=== PATIENT | female | born 1975 | race African-American/Black ===

== ENCOUNTER 2017-02-09 18:06 | Emergency (ER) | payer OTHER ==
[~2017-02-09] VITALS: Ht 175.3 cm; Wt 149.7 kg
[~2017-02-09 18:06] MED LIST: ERGO400T PO; METF-620 PO; METO-239 PO
[2017-02-09 18:13] VITALS: BP 154/90
[2017-02-09] MEDS ORDERED: IBUPROFEN 800 MG TABLET. PO ONE (18:30)
--- NOTE | 2017-02-09 18:34 | PHYS DOC ---
Past Medical History Past Medical History: Diabetes-Type II, Hypertension Additional Past Medical Histor: borderline DM Past Surgical History: Other Additional Past Surgical Histo: right ankle; oral surgery Alcohol Use: None Drug Use: None Adult General Chief Complaint Chief Complaint: SHOULDER INJURY [facility] HPI Patient is a 41 year old female presents to the emergency department stating that she is having right shoulder pain and discomfort. She states that she hasn' t carried multiple turkey carcasses out to the trash can in a trash bag when she had to drop the back due to pain and discomfort. She denies any trauma or physical injury to the shoulder. She does have decreased range of motion or she is unable to raise the arm in the anterior part of her body. She is able to raise her arm out to the side approximately 30. Peripheral pulses are 2+ cap refill brisk less than 2 seconds patient has good sensation noted to bilateral arms. Review of Systems Review of Systems Constitutional: Denies fever or chills [] Eyes: Denies change in visual acuity, redness, or eye pain [] HENT: Denies nasal congestion or sore throat [] Respiratory: Denies cough or shortness of breath [] Cardiovascular: No additional information not addressed in HPI [] GI: Denies abdominal pain, nausea, vomiting, bloody stools or diarrhea [] : Denies dysuria or hematuria [] Musculoskeletal: Denies back pain. Right shoulder pain Integument: Denies rash or skin lesions [] Neurologic: Denies headache, focal weakness or sensory changes [] Endocrine: Denies polyuria or polydipsia [] All other systems were reviewed and found to be within normal limits, except as documented in this note. Current Medications Current Medications Current Medications Medications (Trade) Dose Ordered Sig/Мария Start Time Stop Time Status Last Admin Dose Admin Ibuprofen (Motrin) 800 mg 1X ONCE 02/09/17 18:30 02/09/17 18:31 DC Allergies Allergies Allergies Coded Allergies Type Severity Reaction Last Updated Verified morphine Allergy Intermediate drowsy 10/04/13 No Physical Exam Physical Exam Constitutional: Well developed, well nourished, no acute distress, non-toxic appearance. [] HENT: Normocephalic, atraumatic, bilateral external ears normal, oropharynx moist, no oral exudates, nose normal. [] Eyes: PERRLA, EOMI, conjunctiva normal, no discharge. [] Neck: Normal range of motion, no tenderness, supple, no stridor. [] Cardiovascular:Heart rate regular rhythm, no murmur [] Lungs & Thorax: Bilateral breath sounds clear to auscultation [] Skin: Warm, dry, no erythema, no rash. [] Extremities: Right anterior shoulder tenderness, no cyanosis, no clubbing, ROM intact, no edema. Peripheral pulses 2+ cap refill brisk less than 2 seconds. Patient with good sensation noted to the arms and hands. Patient is able to move the wrist and the elbow with no difficulty. She does have decreased range of motion with anterior position of the arm. She has a 30 graze in the arm when extending to the lateral part of the body. Neurologic: Alert and oriented X 3, normal motor function, normal sensory function, no focal deficits noted. [] Psychologic: Affect normal, judgement normal, mood normal. [] Current Patient Data Vital Signs Vital Signs Date Time Temp Pulse Resp B/P (MAP) Pulse Ox O2 Delivery O2 Flow Rate FiO2 02/09/17 18:13 97.8 77 16 97 Room Air 97.8 EKG EKG [] Radiology/Procedures Radiology/Procedures [] Course & Med Decision Making Course & Med Decision Making Pertinent Labs and Imaging studies reviewed. (See chart for details) Right shoulder x-ray was negative for any bony abnormalities per Dr. Sellers. Patient will be placed in a sling with recommendations to follow-up with Dr. Banegas. Recommended ibuprofen for pain and discomfort. Ice packs on 20 minutes off 20 minutes several times daily recommended that she take the arm out of the sling and do active range of motion at least 5-6 times a day. Patient was provided with signs and symptoms to return back to the emergency department. I've spoken with the patient and/or caregivers. I've explained the patient's condition, diagnosis and treatment plan based on information available to me at this time. I've answered the patient's and/or caregivers questions and addressed any concerns. The patient and/or caregivers have a good understanding the patient's diagnosis, condition and treatment plan as can be expected at this point. Vital signs have been stabilized. The patient's condition is stable for discharge from the emergency department. The patient will pursue further outpatient evaluation with her primary care provider or other designated consulting physician as outlined in the discharge instructions. Patient and/or caregivers are agreeable to this plan of care and follow-up instructions have been explained in detail. The patient and/or caregivers have received these instructions in written format and expressed understanding of these discharge instructions. The patient and her caregivers are aware that if any significant change in condition or worsening of symptoms should prompt him to immediately return to this of the closest emergency department. If an emergent department is not readily available I would encourage him to call 911. [] Dragon Disclaimer Dragon Disclaimer This electronic medical record was generated, in whole or in part, using a voice recognition dictation system. Departure Departure Impression: Primary Impression: Right shoulder pain Disposition: HOME, SELF-CARE Condition: STABLE Referrals: KACEY BANEGAS MD Patient Instructions: Arm Sling Use-Brief, Shoulder Pain, [id number] Additional Instructions: Activity as tolerated. Ice packs on 20 minutes off 20 minutes several times a day. Elevation as much as possible. Tylenol and ibuprofen for pain and discomfort. With a sling to help with comfort for the next 1-2 days. However take the arm out of the sling 5-6 times a day and do active range of motion. Follow-up with orthopedic within the next 3-5 days. Return back to the emergency department signs and symptoms become worse. Problem Qualifiers Primary Impression: Right shoulder pain Chronicity: unspecified Qualified Codes: M25.511 - Pain in right shoulder MARU MCKNIGHT APRN Feb 09, 2017 18:34
--- NOTE | 2017-02-10 07:55 | RAD ---
EXAM: Right shoulder 3 views. HISTORY: Right shoulder pain after injury. COMPARISON: None. FINDINGS: No fractures are identified. The glenohumeral joint spaces are not well profiled but alignment is maintained. Acromioclavicular joint spaces and alignment are maintained. IMPRESSION: 1. No fracture or malalignment.
== END 2017-02-09 19:13 | disposition home or self-care (01) ==
LOC: ER 18:06
DX: M25.511 Pain in right shoulder (principal); I10 Essential (primary) hypertension; E11.9 Type 2 diabetes mellitus without complications; Z88.5 Allergy status to narcotic agent
CPT/HCPCS: 73030; 99284

== ENCOUNTER 2020-07-31 20:24 | Inpatient (IN) | payer BC, OTHER ==
[~2020-07-31] VITALS: Ht 175.3 cm; Wt 147.2 kg
[~2020-07-31 20:24] MED LIST changes: -METF-620 PO; +METF10007 PO
--- NOTE | 2020-07-31 23:26 | PHYS DOC ---
Past Medical History Past Medical History: Diabetes-Type II, High Cholesterol, Hypertension Past Surgical History: Other Additional Past Surgical Histo: right ankle; oral surgery Smoking Status: Never Smoker Alcohol Use: None Drug Use: None General Adult EDM: Chief Complaint: CHEST PAIN HPI: HPI: Patient is a 44-year-old female presenting via POV for chest pain. Onset was 4 to 5 days ago without any known inciting event or trauma. Nothing makes better or worse. Pain is substernal, described as 5/10 pressure without radiation. Timing of symptoms has waxed and waned but reports after coming home from work this evening while walking around the house she started developing similar substernal chest pressure that did not go away after 1 hour which concerned her prompting her to come to our ER for evaluation. She has no personal cardiac history but extensive comorbid conditions such as obesity, high cholesterol, hypertension, type 2 diabetes. She has significant family history of cardiac disease with numerous first-degree relatives having heart attacks less than 50 years old. She does not smoke, no alcohol or illicit drug use. No fever, shortness of breath, cough, abdominal pain, dysuria. No concerning signs or symptoms indicative of potential blood clot/DVT/pulmonary embolus Review of Systems: Review of Systems: Fourteen body systems of review of systems have been reviewed. See HPI for pertinent positives and negative responses, other vaz all other systems are negative, non-pertinent or non-contributory Heart Score: C/O Chest Pain: Yes HEART Score for Chest Pain: HEART Score for Chest Pain Response (Comments) Value History Slighlty/Non-Suspicious 0 ECG Normal 0 Age < 45 0 Risk Factors >3 Risk Factors or Hx CAD 2 Troponin >3 x Normal Limit 2 Total 4 Risk Factors: Risk Factors: DM, Current or recent (<one month) smoker, HTN, HLP, family history of CAD, obesity. Risk Scores: Score 0 - 3: 2.5% MACE over next 6 weeks - Discharge Home Score 4 - 6: 20.3% MACE over next 6 weeks - Admit for Clinical Observation Score 7 - 10: 72.7% MACE over next 6 weeks - Early Invasive Strategies Allergies: Allergies: Allergies Coded Allergies Type Severity Reaction Last Updated Verified morphine Allergy Intermediate drowsy 10/04/13 No Physical Exam: PE: Constitutional: Well developed, well nourished, no acute distress, non-toxic appearance. Obese HENT: Normocephalic, atraumatic, bilateral external ears normal, oropharynx m oist, no oral exudates, nose normal. Eyes: PERRLA, EOMI, conjunctiva normal, no discharge. Neck: Normal range of motion, no tenderness, supple, no stridor. Cardiovascular: Heart rate regular, sinus rhythm, no murmurs rubs or gallops Lungs & Thorax: Bilateral breath sounds clear to auscultation Abdomen: Bowel sounds normal, soft and protuberant, no tenderness, no masses, no pulsatile masses. Nonsurgical abdomen, no peritoneal signs Skin: Warm, dry, no erythema, no rash. Back: No tenderness, no CVA tenderness. Extremities: No tenderness, no cyanosis, no clubbing, ROM intact, no edema. Neurologic: Alert and oriented X 3, grossly normal motor & sensory function, no focal deficits noted. Psychologic: Affect normal, judgement normal, mood normal. Current Patient Data: Labs: Laboratory Tests Test 07/31/20 23:23 07/31/20 23:45 Bedside Urine HCG, Qualitative Hcg negative White Blood Count 8.0 x10^3/uL Red Blood Count 4.30 x10^6/uL Hemoglobin 12.1 g/dL Hematocrit 36.2 % Mean Corpuscular Volume 84 fL Mean Corpuscular Hemoglobin 28 pg Mean Corpuscular Hemoglobin Concent 34 g/dL Red Cell Distribution Width 13.8 % Platelet Count 273 x10^3/uL Neutrophils (%) (Auto) 66 % Lymphocytes (%) (Auto) 24 % Monocytes (%) (Auto) 9 % Eosinophils (%) (Auto) 0 % Basophils (%) (Auto) 1 % Neutrophils # (Auto) 5.3 x10^3/uL Lymphocytes # (Auto) 1.9 x10^3/uL Monocytes # (Auto) 0.7 x10^3/uL Eosinophils # (Auto) 0.0 x10^3/uL Basophils # (Auto) 0.1 x10^3/uL Prothrombin Time 13.4 SEC Prothromb Time International Ratio 1.1 Activated Partial Thromboplast Time 40 SEC Sodium Level 144 mmol/L Potassium Level 4.0 mmol/L Chloride Level 107 mmol/L Carbon Dioxide Level 31 mmol/L Anion Gap 6 Blood Urea Nitrogen 13 mg/dL Creatinine 0.8 mg/dL Estimated GFR (Cockcroft-Gault) 94.3 BUN/Creatinine Ratio 16 Glucose Level 101 mg/dL Calcium Level 8.8 mg/dL Total Bilirubin 0.4 mg/dL Aspartate Amino Transf (AST/SGOT) 36 U/L Alanine Aminotransferase (ALT/SGPT) 23 U/L Alkaline Phosphatase 62 U/L Troponin I Quantitative 12.994 ng/mL Total Protein 7.5 g/dL Albumin 3.5 g/dL Albumin/Globulin Ratio 0.9 Current Medications Medications (Trade) Dose Ordered Sig/Мария Route PRN Reason Start Time Stop Time Status Last Admin Dose Admin Aspirin (Aspirin Chewable) 162 mg 1X ONCE PO 07/31/20 23:45 07/31/20 23:46 DC 07/31/20 23:51 Nitroglycerin (Nitrostat) 0.4 mg STK-MED ONCE SL 08/01/20 00:24 08/01/20 00:24 DC Nitroglycerin (Nitrostat) 0.4 mg PRN Q5MIN PRN SL CHEST PAIN 08/01/20 00:30 08/01/20 00:33 Vital Signs: Vital Signs Date Time Temp Pulse Resp B/P (MAP) Pulse Ox O2 Delivery O2 Flow Rate FiO2 07/31/20 20:25 97.3 71 18 149/87 (107) 96 Room Air 97.3 EKG: EKG: EKG ordered and interpreted by myself at 2040 hrs. as sinus rhythm at 62 bpm, unremarkable intervals, no axis deviation, no obvious ischemic findings, no STEMI EKG ordered and interpreted by myself at 00 42 hours as sinus rhythm at 62 bpm, unremarkable intervals, left axis deviation, no STEMI Radiology/Procedures: Radiology/Procedures: XR CHEST 1V Clinical Indication: Reason: CHEST PAIN / Comparison: None. Findings: Apical lordotic positioning. The cardiomediastinal silhouette is normal. Lungs are clear. There is no pneumothorax. No pleural effusion is appreciated. No acute bone abnormality. IMPRESSION: No acute cardiopulmonary process. Electronically signed by: Syed Corcoran MD (08/01/2020 12:07 AM) [facility] Course & Med Decision Making: Course & Med Decision Making Vitals stable. HPI concerning for chest pain that started 5 days prior, worsened 2 hours prior without history of CAD but numerous risk factors. Physical exam nonconcerning for emergent or surgical findings ER work-up ensued, concerning for NSTEMI with grossly elevated troponin 162 mg aspirin, x1 nitro sublingual administered with resolution of chest pressure. Repeat EKG nonconcerning for STEMI or immediate need for activation of Mental Health Coordinator. Heparin drip started. I contacted hospitalist service and discussed need for hospitalization and cardiology consultation, they agreed for need of hospital admission and accepted patient under their care I updated patient and mother who was also at bedside on proposed plan of care that included hospital admission, they were amenable. All questions and concerns addressed prior to admission to hospital Critical Care Time This patient required critical care. Due to the fact that the patient required a significant amount of one on one physician - patient contact time, ordering and review of studies, arranging urgent treatment with development of a management plan, evaluation of patients response to treatment with frequent reassessments, and discussions with other providers this patient required 40 minutes of critical care time. Critical care time was indicated due to the inherent inst ability and/or potential for instability in this patient. The critical care time that is allocated to this patient is above and beyond any time spent on any other billable procedures performed on this patient. Angeline Disclaimer: Angeline Disclaimer: This electronic medical record was generated, in whole or in part, using a voice recognition dictation system. Departure Departure Impression: Primary Impression: NSTEMI (non-ST elevated myocardial infarction) Additional Impressions: HTN (hypertension) Hypercholesteremia Obesity Disposition: 09 ADMITTED INPATIENT Admitting Physician: BRADLEY (MADYSON) Condition: STABLE Referrals: NO PCP (PCP) ARNULFO HALL DO July 31, 2020 23:26
[2020-07-31] MEDS ORDERED: ASPIRIN CHEWABLE 81 MG TABLET. PO ONE (23:45)
[2020-07-31 23:55] LABS: BASO # 0.1 x10^3/uL (0.0-0.2); BASO % 1 % (0-3); EOS % 0 % (0-3); HEMATOCRIT 36.2 % (36.0-47.0); HEMOGLOBIN 12.1 g/dL (12.0-15.5); LYMPH # 1.9 x10^3/uL (1.0-4.8); LYMPH % 24 % (24-48); MEAN CORPUSCULAR HEMOGLOBIN 28 pg (25-35); MEAN CORPUSCULAR HGB CONC 34 g/dL (31-37); MEAN CORPUSCULAR VOLUME 84 fL (79-100); MONO # 0.7 x10^3/uL (0.0-1.1); MONO % 9 % (0-9); NEUT # 5.3 x10^3/uL (1.8-7.7); NEUT % 66 % (31-73); PLATELET COUNT 273 x10^3/uL (140-400); RED CELL DISTRIBUTION WIDTH 13.8 % (11.5-14.5)
[2020-08-01] VITALS (17 sets, daily range): BP systolic 119–165; BP diastolic 73–102
[2020-08-01 00:06] LABS: CALCIUM 8.8 mg/dL (8.5-10.1); CREATININE 0.8 mg/dL (0.6-1.0); GFR 94.3
--- NOTE | 2020-08-01 00:09 | RAD ---
XR CHEST 1V Clinical Indication: Reason: CHEST PAIN / Comparison: None. Findings: Apical lordotic positioning. The cardiomediastinal silhouette is normal. Lungs are clear. There is no pneumothorax. No pleural effusion is appreciated. No acute bone abnormality. IMPRESSION: No acute cardiopulmonary process. Electronically signed by: Syed Corcoran MD (08/01/2020 12:07 AM) [facility]
[2020-08-01 00:12] LABS: ALBUMIN 3.5 g/dL (3.4-5.0); ALBUMIN/GLOBULIN RATIO 0.9 (1.0-1.7); TOTAL BILIRUBIN 0.4 mg/dL (0.2-1.0); TOTAL PROTEIN 7.5 g/dL (6.4-8.2)
[2020-08-01] MEDS ORDERED: NITROGLYCERIN SUBLINGUAL 0.4 MG BOTTLE OF 25. SL ONE (00:24)
[2020-08-01] MEDS ORDERED: NITROGLYCERIN SUBLINGUAL 0.4 MG BOTTLE OF 25. SL PRN ×2 (00:30→00:45)
[2020-08-01] MEDS ORDERED: ANTI-COAG MONITOR BY PHARMACY. MC PRN (00:45)
[2020-08-01] MEDS ORDERED: ACETAMINOPHEN 325 MG TABLET. PO PRN ×2 (00:45→10:45)
[2020-08-01] MEDS ORDERED: ONDANSETRON PF 4 MG/2 ML VIAL. IV PRN (00:45)
[2020-08-01] MEDS ORDERED: HEPARIN for IV BOLUS 10,000 UNIT/10 ML VIAL. IV PRN (00:45)
[2020-08-01] MEDS ORDERED: HEPARIN for IV BOLUS 10,000 UNIT/10 ML VIAL. IV ONE (01:00)
[2020-08-01] MEDS ORDERED: ACETAMINOPHEN 650 MG/20.3 ML SOLUTION. PEG ONE (01:00)
[2020-08-01] MEDS ORDERED: ACETAMINOPHEN 325 MG TABLET. PO ONE (01:00)
[2020-08-01] MEDS: HEPARIN 25,000UTS/250ML PREMIX 250 ML IV PRN ×2 (01:12→23:36)
[2020-08-01 01:34] LABS: PROTHROMBIN TIME PATIENT 13.4 SEC (11.7-14.0)
[2020-08-01] MEDS ORDERED: FERR240T11 PO (04:38)
[2020-08-01] MEDS ORDERED: ASCO500C PO (04:38)
[2020-08-01] MEDS ORDERED: MULT-245 PO (04:38)
[2020-08-01] MEDS ORDERED: ATOR40TA59 PO (04:38)
--- NOTE | 2020-08-01 09:12 | EKG ---
[facility] [address] [place] [address] Test Date: 2020-08-01 Test Time: 09:10:38 Pat Name: CANDICE HOLDER Department: Room: Gender: F [employer]: HOLLY : 1975 Requested By: ARNULFO HALL Order Number: [id number] Reading MD: Measurements Intervals [place] Rate: 70 P: 37 AK: 164 QRS: 3 QRSD: 86 T: -16 QT: 432 QTc: 470 Interpretive Statements SINUS RHYTHM QRS(T) CONTOUR ABNORMALITY CONSIDER ANTEROSEPTAL MYOCARDIAL DAMAGE T ABNORMALITY IN ANTEROLATERAL LEADS INFERIOR LEADS ABNORMAL ECG RI6.02 Compared to ECG 08/01/2020 00:39:47 Left-axis deviation no longer present T-wave abnormality still present
--- NOTE | 2020-08-01 09:26 | PDOC2 ---
AC MORENO UNDERWRITING TECHNICIAN 08/01/20 0926: CARDIAC CONSULT DATE OF CONSULT Date of Consult DATE: 08/01/20 TIME: 09:13 REASON FOR CONSULT Reason for Consult: NSTEMI REFERRING PHYSICIAN Referring Physician: Vivek SOURCE Source: Chart review, Patient HISTORY OF PRESENT ILLNESS HISTORY OF PRESENT ILLNESS This is a pleasant 44 yo female admitted for complains of chest pain. Her chest pain was described as pressure midchest and started initially on Wednesday. It lasted about 2 hours before it got better and actually took some tums because she thought it was gas. This recurred again Wednesday and then Wednesday it recurred again and took tums. It appears her symptoms has been associated with indigestion but no complains of SOA, nausea or vomiting. She said she always have palpitations. Her mother told me that she has been looking more exhausted lately. No dizziness, diaphoresis. She is pre DM has HLP and takes metoprolol for HTN and some irregular heart beat that she could not tell what type. No prior hx of CAD. VTE, no falls or any recent injury. PAST MEDICAL HISTORY Cardiovascular: HTN, Hyperlipidemia, Other ("irregular HR") Pulmonary: No pertinent hx CENTRAL NERVOUS SYSTEM: Other (ANo pertinent hisotyr) GI: No pertinent hx Heme/Onc: No pertinent hx Hepatobiliary: No pertinent hx Psych: No pertinent hx Musculoskeletal: Osteoarthritis Rheumatologic: No pertinent hx Infectious disease: No pertinent hx ENT: No pertinent hx Renal/: No pertinent hx Endocrine: Other (metabolic syndrome) Dermatology: No pertinent hx PAST SURGICAL HISTORY Past Surgical History: Other (left ankle surgery) FAMILY HISTORY Family History: Coronary Artery Disease (premature CAD with brother) SOCIAL HISTORY Smoke: No ALCOHOL: none Drugs: None Lives: with Family CURRENT MEDICATIONS CURRENT MEDICATIONS Current Medications Medications (Trade) Dose Ordered Sig/Мария Route PRN Reason Start Time Stop Time Status Last Admin Dose Admin Aspirin (Aspirin Chewable) 162 mg 1X ONCE PO 07/31/20 23:45 07/31/20 23:46 DC 07/31/20 23:51 Nitroglycerin (Nitrostat) 0.4 mg PRN Q5MIN PRN SL CHEST PAIN 08/01/20 00:30 08/01/20 00:33 Heparin Sodium (Porcine) (Heparin Sodium) 4,000 unit 1X ONCE IV 08/01/20 01:00 08/01/20 01:01 DC 08/01/20 01:06 Heparin Sodium/ Dextrose 250 ml @ 0 mls/hr CONT PRN IV PER PROTOCOL 08/01/20 00:45 08/01/20 01:12 Heparin Sodium (Porcine) (Heparin Sodium) 3,700 unit PRN Q6HRS PRN IV FOR UFH LEVEL LESS THAN 0.2 08/01/20 00:45 08/01/20 08:20 Acetaminophen (Tylenol) 650 mg 1X ONCE PO 08/01/20 01:00 08/01/20 01:01 DC 08/01/20 00:45 Info (Anti-Coagulation Monitoring By Pharmacy) 1 each PRN DAILY PRN MC PER PROTOCOL 08/01/20 00:45 08/01/20 02:27 ALLERGIES ALLERGIES: Coded Allergies: morphine (Unverified Allergy, Intermediate, drowsy, 10/04/13) ROS Review of System 14 point ROS evaluated with pertinent positives noted per HPI PHYSICAL EXAM General: Alert, Oriented X3, Cooperative, No acute distress HEENT: Atraumatic, Mucous membr. moist/pink Lungs: Clear to auscultation, Normal air movement Heart: Regular rate (SR), Normal S1, Normal S2, No murmurs Abdomen: Soft, No tenderness Extremities: No cyanosis, No edema Skin: No breakdown, No significant lesion Neuro: Normal speech, Sensation intact Psych/Mental Status: Mental status NL, Mood NL MUSCULOSKELETAL: Osteoarthritic changes both hands VITALS/I&O VITALS/I&O: Vital Signs Date Time Temp Pulse Resp B/P (MAP) Pulse Ox O2 Delivery O2 Flow Rate FiO2 08/01/20 07:00 98.5 57 16 159/92 (114) 99 Room Air 98.5 I & O 07/31/20 07/31/20 08/01/20 15:00 23:00 07:00 Intake Total 0 ml Balance 0 ml LABS Lab: Laboratory Tests Test 07/31/20 23:23 07/31/20 23:45 08/01/20 06:00 08/01/20 07:10 POC Urine HCG, Qualitative Hcg negative (Negative) White Blood Count 8.0 x10^3/uL (4.0-11.0) Red Blood Count 4.30 x10^6/uL (3.50-5.40) Hemoglobin 12.1 g/dL (12.0-15.5) Hematocrit 36.2 % (36.0-47.0) Mean Corpuscular Volume 84 fL (79-100) Mean Corpuscular Hemoglobin 28 pg (25-35) Mean Corpuscular Hemoglobin Concent 34 g/dL (31-37) Red Cell Distribution Width 13.8 % (11.5-14.5) Platelet Count 273 x10^3/uL (140-400) Neutrophils (%) (Auto) 66 % (31-73) Lymphocytes (%) (Auto) 24 % (24-48) Monocytes (%) (Auto) 9 % (0-9) Eosinophils (%) (Auto) 0 % (0-3) Basophils (%) (Auto) 1 % (0-3) Neutrophils # (Auto) 5.3 x10^3/uL (1.8-7.7) Lymphocytes # (Auto) 1.9 x10^3/uL (1.0-4.8) Monocytes # (Auto) 0.7 x10^3/uL (0.0-1.1) Eosinophils # (Auto) 0.0 x10^3/uL (0.0-0.7) Basophils # (Auto) 0.1 x10^3/uL (0.0-0.2) Prothrombin Time 13.4 SEC (11.7-14.0) Prothrombin Time INR 1.1 (0.8-1.1) Activated Partial Thromboplast Time 40 SEC (24-38) H Sodium Level 144 mmol/L (136-145) Potassium Level 4.0 mmol/L (3.5-5.1) Chloride Level 107 mmol/L (98-107) Carbon Dioxide Level 31 mmol/L (21-32) Anion Gap 6 (6-14) Blood Urea Nitrogen 13 mg/dL (7-20) Creatinine 0.8 mg/dL (0.6-1.0) Estimated GFR (Cockcroft-Gault) 94.3 BUN/Creatinine Ratio 16 (6-20) Glucose Level 101 mg/dL (70-99) H Calcium Level 8.8 mg/dL (8.5-10.1) Total Bilirubin 0.4 mg/dL (0.2-1.0) Aspartate Amino Transferase (AST) 36 U/L (15-37) Alanine Aminotransferase (ALT) 23 U/L (14-59) Alkaline Phosphatase 62 U/L (46-116) Troponin I Quantitative 12.994 ng/mL (0.000-0.055) 11.736 ng/mL (0.000-0.055) Total Protein 7.5 g/dL (6.4-8.2) Albumin 3.5 g/dL (3.4-5.0) Albumin/Globulin Ratio 0.9 (1.0-1.7) L Heparin Anti-Xa Act, Unfractionated < 0.10 IU/mL (0.30-0.70) L Test 08/01/20 08:16 Glucose (Fingerstick) 85 mg/dL (70-99) Laboratory Tests 07/31/20 23:45 Laboratory Tests 07/31/20 23:45 ASSESSMENT/PLAN ASSESSMENT/PLAN 1. NSTEMI/ACS 2. HTN: controlled 3. HLP 4. Metabolic syndrome 5. Family hx of premature CAD 6. Morbid obesity 7. Suspected STEVE Recommendations 1. LHC with possible PCI, risks and benefits discussed and agreeable to proceed 2. FLP, TTE, and TSH 3. ASA, heparin ongoing 4. GDMT per LHC findings. 5. Continue home statin and metoprolol; MESSI BARRAGAN MD 08/01/20 1223: CARDIAC CONSULT ASSESSMENT/PLAN ASSESSMENT/PLAN Pt. seen and examined. Agree with above DIGITAL COMPOSER note. LHC with SCAD. Continue medical mgmt. Supportive care. AC MORENO APRN August 01, 2020 09:26 MESSI BARRAGAN MD August 01, 2020 12:23
[2020-08-01] MEDS ORDERED: IODIXANOL 320 MG/ML 100 ML VIAL. ONE (09:45)
[2020-08-01] MEDS ORDERED: LIDOCAINE 1% PF 2 ML VIAL. ONE (09:45)
[2020-08-01 09:54] LABS: CHOLESTEROL/HDL RATIO 2.9
--- NOTE | 2020-08-01 10:03 | NUR ---
SS following for discharge planning. SS reviewed pt chart and discussed with pt RN. Pt is from home and is currently on room air. COVID19 negative. Pt having ECHO and Heart Cath today. Pt on Heparin drip. Discharge plan is to home when medically ready. SS will continue to follow for discharge planning.
[2020-08-01] MEDS ORDERED: HEPARIN for IV BOLUS 10,000 UNIT/10 ML VIAL. ONE (10:09)
[2020-08-01] MEDS ORDERED: fentaNYL PF VIAL 100 MCG/2 ML VIAL ONE (10:09)
[2020-08-01] MEDS ORDERED: MIDAZOLAM HCL/PF 2 MG/2 ML VIAL. ONE (10:09)
[2020-08-01] MEDS ORDERED: VERAPAMIL 5 MG/2 ML VIAL. ONE (10:10)
[2020-08-01] MEDS ORDERED: NITROGLYCERIN 200 MCG/2 ML SYRINGE FOR CATH/VASC LAB. ONE (10:10)
--- NOTE | 2020-08-01 10:33 | PDOC1 ---
History and Physical Date of Admission Date of Admission DATE: 08/01/20 TIME: 10:22 Identification/Chief Complaint Chief Complaint Chest pain Source Source: Chart review, Patient History of Present Illness History of Present Illness Patient is a 44-year-old female with past medical history HTN, DM 2, morbid obesity, who presents to the ED with complaints of intermittent substernal chest pain over the past 4-5 days. She reports chest pain 5/10, and when her chest pain did not spontaneously improve last night, she came to the ED for further evaluation. Initial troponin was 12.994, with repeat 11.736. She was placed on a heparin drip in the ED. She does admit to a significant family history of cardiac disease, with multiple first-degree relatives having heart attacks <50 years of age. Will admit patient for further medical management. Past Medical History Cardiovascular: HTN, Hyperlipidemia, Other ("irregular HR") Pulmonary: No pertinent hx CENTRAL NERVOUS SYSTEM: Other (ANo pertinent hisotyr) GI: No pertinent hx Heme/Onc: No pertinent hx Hepatobiliary: No pertinent hx Psych: No pertinent hx Musculoskeletal: Osteoarthritis Rheumatologic: No pertinent hx Infectious disease: No pertinent hx ENT: No pertinent hx Renal/: No pertinent hx Endocrine: Other (metabolic syndrome) Dermatology: No pertinent hx Past Surgical History Past Surgical History: Other (left ankle surgery) Family History Family History: Coronary Artery Disease (premature CAD with brother) Social History Smoke: No ALCOHOL: none Drugs: None Current Problem List Problem List Problems Medical Problems: (1) HTN (hypertension) Status: Acute (2) Hypercholesteremia Status: Acute (3) Obesity Status: Acute Current Medications Current Medications Current Medications Aspirin (Aspirin Chewable) 162 mg 1X ONCE PO Last administered on 07/31/20at 2 3:51; Start 07/31/20 at 23:45; Stop 07/31/20 at 23:46; Status DC Nitroglycerin (Nitrostat) 0.4 mg STK-MED ONCE SL ; Start 08/01/20 at 00:24; Stop 08/01/20 at 00:24; Status DC Nitroglycerin (Nitrostat) 0.4 mg PRN Q5MIN PRN SL CHEST PAIN Last administered on 08/01/20at 00:33; Start 08/01/20 at 00:30 Acetaminophen (Tylenol) 650 mg 1X ONCE PEG ; Start 08/01/20 at 01:00; Stop 08/01/20 at 01:01; Status Cancel Heparin Sodium (Porcine) (Heparin Sodium) 4,000 unit 1X ONCE IV Last administered on 08/01/20at 01:06; Start 08/01/20 at 01:00; Stop 08/01/20 at 01:01; Status DC Heparin Sodium/ Dextrose 250 ml @ 0 mls/hr CONT PRN IV PER PROTOCOL Last administered on 08/01/20at 01:12; Start 08/01/20 at 00:45 Heparin Sodium (Porcine) (Heparin Sodium) 3,700 unit PRN Q6HRS PRN IV FOR UFH LEVEL LESS THAN 0.2 Last administered on 08/01/20at 08:20; Start 08/01/20 at 00:45 Acetaminophen (Tylenol) 650 mg 1X ONCE PO Last administered on 08/01/20at 00:45; Start 08/01/20 at 01:00; Stop 08/01/20 at 01:01; Status DC Info (Anti-Coagulation Monitoring By Pharmacy) 1 each PRN DAILY PRN MC PER PROTOCOL Last administered on 08/01/20at 02:27; Start 08/01/20 at 00:45 Ondansetron HCl (Zofran) 4 mg PRN Q8HRS PRN IV NAUSEA/VOMITING 1ST CHOICE; Start 08/01/20 at 00:45; Stop 08/02/20 at 00:44 Acetaminophen (Tylenol) 650 mg PRN Q4HRS PRN PO FEVER > 100.3'F; Start 08/01/20 at 00:45; Stop 08/02/20 at 00:44 Nitroglycerin (Nitrostat) 0.4 mg PRN Q5MIN PRN SL CHEST PAIN; Start 08/01/20 at 00:45; Stop 08/02/20 at 00:44 Lidocaine HCl (Xylocaine-Mpf 1% 2ml Vial) 2 ml STK-MED ONCE .ROUTE ; Start 08/01/20 at 09:45; Stop 08/01/20 at 09:45; Status DC Heparin Sodium/ Sodium Chloride 1,000 ml @ As Directed STK-MED ONCE .ROUTE ; Start 08/01/20 at 09:45; Stop 08/01/20 at 09:46; Status DC Iodixanol (Visipaque 320) 100 ml STK-MED ONCE .ROUTE ; Start 08/01/20 at 09:45; Stop 08/01/20 at 09:46; Status DC Midazolam HCl (Versed) 2 mg STK-MED ONCE .ROUTE ; Start 08/01/20 at 10:09; Stop 08/01/20 at 10:10; Status DC Heparin Sodium (Porcine) (Heparin Sodium) 10,000 unit STK-MED ONCE .ROUTE ; Start 08/01/20 at 10:09; Stop 08/01/20 at 10:10; Status DC Verapamil HCl (Verapamil) 5 mg STK-MED ONCE .ROUTE ; Start 08/01/20 at 10:10; Stop 08/01/20 at 10:10; Status DC Nitroglycerin (Nitroglycerin) 200 mcg STK-MED ONCE .ROUTE ; Start 08/01/20 at 10:10; Stop 08/01/20 at 10:10; Status DC Fentanyl Citrate (Fentanyl 2ml Vial) 100 mcg STK-MED ONCE .ROUTE ; Start 08/01/20 at 10:09; Stop 08/01/20 at 10:15; Status DC Atorvastatin Calcium (Lipitor) 40 mg QHS PO ; Start 08/01/20 at 21:00; Status UNV Metoprolol Succinate (Toprol Xl) 25 mg DAILY PO ; Start 08/02/20 at 09:00; Status UNV Active Scripts Active Reported Multi Vitamin Daily (Multivitamin) 1 Each Tablet 1 Tab PO DAILY 30 Days Iron (Ferrous Gluconate) 240 Mg Tablet 1 Tab PO DAILY 30 Days Vitamin C (Ascorbic Acid) 500 Mg Capsule.er 1 Cap PO DAILY 30 Days Atorvastatin Calcium 40 Mg Tablet 1 Tab PO QHS Vitamin D (Ergocalciferol (Vitamin D2)) 400 Unit Tablet 400 Unit PO Metoprolol Succinate ( Xl ) (Metoprolol Succinate) 25 Mg Tab.er.24h 25 Mg PO DAILY Metformin Hcl 1,000 Mg Tablet 1,000 Mg PO DAILYWBKFT Allergies Allergies: Coded Allergies: morphine (Unverified Allergy, Intermediate, drowsy, 10/04/13) ROS Review of System GENERAL: No history of weight change, weakness or fevers. SKIN: No bruising, hair changes or rashes. EYES: No blurred, double or loss of vision. NOSE AND THROAT: No history of nosebleeds, hoarseness or sore throat. HEART: Chest pain. Denies palpitations. LUNGS: Denies cough, hemoptysis, wheezing or shortness of breath. GASTROINTESTINAL: Denies nausea, vomiting, abdominal pain. GENITOURINARY: Denies dysuria, frequency, urgency, hematuria. NEUROLOGIC: Denies history of numbness, tingling, tremor or weakness. PSYCHIATRIC: Denies anxiety, denies depression. ENDOCRINE: No history of heat or cold intolerance, polyuria or polydipsia. EXTREMITIES: Denies muscle weakness, joint pain, pain on walking or stiffness. Physical Exam Physical Exam General: Morbidly obese. Alert, Oriented X3, Cooperative, mild distress HEENT: PERRLA, EOMI Lungs: Clear to auscultation, Normal air movement Heart: RRR, no murmurs Cardiovascular: S1, S2 Abdomen: Normal bowel sounds, Soft, No tenderness Extremities: No clubbing, No cyanosis Skin: No rashes, No significant lesion Neuro: Normal speech, Normal tone, Sensation intact Psych/Mental Status: Mental status NL, Mood NL Vitals Vitals Vital Signs Date Time Temp Pulse Resp B/P (MAP) Pulse Ox O2 Delivery O2 Flow Rate FiO2 08/01/20 07:00 98.5 57 16 159/92 (114) 99 Room Air 98.5 Labs Labs Laboratory Tests Test 07/31/20 23:23 07/31/20 23:45 08/01/20 06:00 08/01/20 07:10 Bedside Urine HCG, Qualitative Hcg negative (Negative) White Blood Count 8.0 x10^3/uL (4.0-11.0) Red Blood Count 4.30 x10^6/uL (3.50-5.40) Hemoglobin 12.1 g/dL (12.0-15.5) Hematocrit 36.2 % (36.0-47.0) Mean Corpuscular Volume 84 fL (79-100) Mean Corpuscular Hemoglobin 28 pg (25-35) Mean Corpuscular Hemoglobin Concent 34 g/dL (31-37) Red Cell Distribution Width 13.8 % (11.5-14.5) Platelet Count 273 x10^3/uL (140-400) Neutrophils (%) (Auto) 66 % (31-73) Lymphocytes (%) (Auto) 24 % (24-48) Monocytes (%) (Auto) 9 % (0-9) Eosinophils (%) (Auto) 0 % (0-3) Basophils (%) (Auto) 1 % (0-3) Neutrophils # (Auto) 5.3 x10^3/uL (1.8-7.7) Lymphocytes # (Auto) 1.9 x10^3/uL (1.0-4.8) Monocytes # (Auto) 0.7 x10^3/uL (0.0-1.1) Eosinophils # (Auto) 0.0 x10^3/uL (0.0-0.7) Basophils # (Auto) 0.1 x10^3/uL (0.0-0.2) Prothrombin Time 13.4 SEC (11.7-14.0) Prothromb Time International Ratio 1.1 (0.8-1.1) Activated Partial Thromboplast Time 40 SEC (24-38) Sodium Level 144 mmol/L (136-145) Potassium Level 4.0 mmol/L (3.5-5.1) Chloride Level 107 mmol/L (98-107) Carbon Dioxide Level 31 mmol/L (21-32) Anion Gap 6 (6-14) Blood Urea Nitrogen 13 mg/dL (7-20) Creatinine 0.8 mg/dL (0.6-1.0) Estimated GFR (Cockcroft-Gault) 94.3 BUN/Creatinine Ratio 16 (6-20) Glucose Level 101 mg/dL (70-99) Calcium Level 8.8 mg/dL (8.5-10.1) Total Bilirubin 0.4 mg/dL (0.2-1.0) Aspartate Amino Transf (AST/SGOT) 36 U/L (15-37) Alanine Aminotransferase (ALT/SGPT) 23 U/L (14-59) Alkaline Phosphatase 62 U/L (46-116) Troponin I Quantitative 12.994 ng/mL (0.000-0.055) 11.736 ng/mL (0.000-0.055) Total Protein 7.5 g/dL (6.4-8.2) Albumin 3.5 g/dL (3.4-5.0) Albumin/Globulin Ratio 0.9 (1.0-1.7) Heparin Anti-Xa Act, Unfractionated < 0.10 IU/mL (0.30-0.70) Triglycerides Level 117 mg/dL (0-150) Cholesterol Level 140 mg/dL (0-200) LDL Cholesterol, Calculated 69 mg/dL (0-100) VLDL Cholesterol, Calculated 23 mg/dL (0-40) Non-HDL Cholesterol Calculated 92 mg/dL (0-129) HDL Cholesterol 48 mg/dL (40-60) Cholesterol/HDL Ratio 2.9 Thyroid Stimulating Hormone (TSH) 1.709 uIU/mL (0.358-3.74) Test 08/01/20 08:16 08/01/20 09:10 Glucose (Fingerstick) 85 mg/dL (70-99) SARS-CoV-2 Antigen (Rapid) Negative (NEGATIVE) Laboratory Tests Test 07/31/20 23:23 07/31/20 23:45 08/01/20 06:00 08/01/20 07:10 Bedside Urine HCG, Qualitative Hcg negative (Negative) White Blood Count 8.0 x10^3/uL (4.0-11.0) Red Blood Count 4.30 x10^6/uL (3.50-5.40) Hemoglobin 12.1 g/dL (12.0-15.5) Hematocrit 36.2 % (36.0-47.0) Mean Corpuscular Volume 84 fL (79-100) Mean Corpuscular Hemoglobin 28 pg (25-35) Mean Corpuscular Hemoglobin Concent 34 g/dL (31-37) Red Cell Distribution Width 13.8 % (11.5-14.5) Platelet Count 273 x10^3/uL (140-400) Neutrophils (%) (Auto) 66 % (31-73) Lymphocytes (%) (Auto) 24 % (24-48) Monocytes (%) (Auto) 9 % (0-9) Eosinophils (%) (Auto) 0 % (0-3) Basophils (%) (Auto) 1 % (0-3) Neutrophils # (Auto) 5.3 x10^3/uL (1.8-7.7) Lymphocytes # (Auto) 1.9 x10^3/uL (1.0-4.8) Monocytes # (Auto) 0.7 x10^3/uL (0.0-1.1) Eosinophils # (Auto) 0.0 x10^3/uL (0.0-0.7) Basophils # (Auto) 0.1 x10^3/uL (0.0-0.2) Prothrombin Time 13.4 SEC (11.7-14.0) Prothromb Time International Ratio 1.1 (0.8-1.1) Activated Partial Thromboplast Time 40 SEC (24-38) Sodium Level 144 mmol/L (136-145) Potassium Level 4.0 mmol/L (3.5-5.1) Chloride Level 107 mmol/L (98-107) Carbon Dioxide Level 31 mmol/L (21-32) Anion Gap 6 (6-14) Blood Urea Nitrogen 13 mg/dL (7-20) Creatinine 0.8 mg/dL (0.6-1.0) Estimated GFR (Cockcroft-Gault) 94.3 BUN/Creatinine Ratio 16 (6-20) Glucose Level 101 mg/dL (70-99) Calcium Level 8.8 mg/dL (8.5-10.1) Total Bilirubin 0.4 mg/dL (0.2-1.0) Aspartate Amino Transf (AST/SGOT) 36 U/L (15-37) Alanine Aminotransferase (ALT/SGPT) 23 U/L (14-59) Alkaline Phosphatase 62 U/L (46-116) Troponin I Quantitative 12.994 ng/mL (0.000-0.055) 11.736 ng/mL (0.000-0.055) Total Protein 7.5 g/dL (6.4-8.2) Albumin 3.5 g/dL (3.4-5.0) Albumin/Globulin Ratio 0.9 (1.0-1.7) Heparin Anti-Xa Act, Unfractionated < 0.10 IU/mL (0.30-0.70) Triglycerides Level 117 mg/dL (0-150) Cholesterol Level 140 mg/dL (0-200) LDL Cholesterol, Calculated 69 mg/dL (0-100) VLDL Cholesterol, Calculated 23 mg/dL (0-40) Non-HDL Cholesterol Calculated 92 mg/dL (0-129) HDL Cholesterol 48 mg/dL (40-60) Cholesterol/HDL Ratio 2.9 Thyroid Stimulating Hormone (TSH) 1.709 uIU/mL (0.358-3.74) Test 08/01/20 08:16 08/01/20 09:10 Glucose (Fingerstick) 85 mg/dL (70-99) SARS-CoV-2 Antigen (Rapid) Negative (NEGATIVE) Images Images CHEST AP ONLY XR CHEST 1V Clinical Indication: Reason: CHEST PAIN / Comparison: None. Findings: Apical lordotic positioning. The cardiomediastinal silhouette is normal. Lungs are clear. There is no pneumothorax. No pleural effusion is appreciated. No acute bone abnormality. IMPRESSION: No acute cardiopulmonary process. VTE Prophylaxis Ordered VTE Prophylaxis Devices: No VTE Pharmacological Prophylaxi: Yes Assessment/Plan Assessment/Plan NSTEMI HTN HLD DM2 Plan: Patient was admitted to cardiac floor on heparin drip She will be taken to [facility] this morning with with possible PCI Lipid panel and TSH within normal limits Resume home medications when you can HDSS insulin FEN - Cardiac diet PPX - Heparin FULL CODE Dispo - inpatient for above Justifications for Admission Other Justification ALEX GATES MD August 01, 2020 10:33
[2020-08-01 10:42] LABS: BARBITURATES NEG (NEG); BENZODIAZEPINES NEG (NEG); CANNABINOIDS NEG (NEG); COCAINE NEG (NEG); METHADONE NEG (NEG); OPIATES NEG (NEG); PHENCYCLIDINE NEG (NEG)
[2020-08-01 10:43] LABS: AMPHETAMINE/METHAMPHETAMINE NEG (NEG)
[2020-08-01] MEDS ORDERED: MAGNESIUM HYDROXIDE 2,400 MG/30 ML ORAL.SUSP. PO PRN (10:45)
[2020-08-01] MEDS ORDERED: fentaNYL PF VIAL 100 MCG/2 ML VIAL IV ONE (10:45)
[2020-08-01] MEDS ORDERED: IODIXANOL 320 MG/ML 100 ML VIAL. IART ONE (10:45)
[2020-08-01] MEDS ORDERED: MAG HYDROX/ALUMINUM HYD/SIMETH 30 ML ORAL.SUSP PO PRN (10:45)
[2020-08-01] MEDS ORDERED: LIDOCAINE 1% PF 2 ML VIAL. INJ ONE (10:45)
[2020-08-01] MEDS ORDERED: DEXTROSE 50% 25 GM / 50ML DISP.SYRIN. IV PRN (10:45)
[2020-08-01] MEDS ORDERED: MIDAZOLAM HCL/PF 2 MG/2 ML VIAL. IV ONE (10:45)
[2020-08-01] MEDS ORDERED: NITROGLYCERIN 200 MCG/2 ML SYRINGE FOR CATH/VASC LAB. ICAR ONE (10:45)
[2020-08-01] MEDS ORDERED: NITROGLYCERIN 200 MCG/2 ML SYRINGE FOR CATH/VASC LAB. IART ONE (10:45)
[2020-08-01] MEDS ORDERED: HEPARIN for IV BOLUS 10,000 UNIT/10 ML VIAL. IART ONE (10:45)
[2020-08-01] MEDS ORDERED: ZOLPIDEM 5 MG TABLET. PO PRN (10:45)
[2020-08-01] MEDS ORDERED: ONDANSETRON PF 4 MG/2 ML VIAL. IVP PRN (10:45)
[2020-08-01] MEDS ORDERED: HYDROcodone/APAP 5/325MG 1 TAB TABLET PO PRN (10:45)
[2020-08-01] MEDS ORDERED: IV DEXTROSE 5% 250 ML BAG. IV PRN (10:45)
[2020-08-01] MEDS ORDERED: CALCIUM CARBONATE 500 MG TAB.CHEW PO PRN (10:45)
[2020-08-01] MEDS ORDERED: BISACODYL 10 MG SUPP.RECT. PR PRN (10:45)
[2020-08-01] MEDS ORDERED: VERAPAMIL 5 MG/2 ML VIAL. IART ONE (10:45)
--- NOTE | 2020-08-01 10:52 | NUR ---
LEON CALLED FROM [facility] [employer] TO REPORT PT HAD RT RADIAL CATH. TR BAND PLACED AT 1046 WITH 12ML OF AIR. PT RECEIVED VERSED 2MG AND FENTANYL 50MCG. NO INTERVENTIONS.
[2020-08-01] MEDS ORDERED: IV NORMAL SALINE 500ML BAG 500 ML IV ONE (11:00)
[2020-08-01] MEDS ORDERED: PERFLUTREN PROTEIN-A MICROSPHR 0.22 MG/ML 3 ML VIAL. IV ONE ×2 (11:37→12:30)
[2020-08-01] MEDS: INSULIN LISPRO 300 UNITS/3 ML VIAL. SQ SCH ×2 (12:00→17:00)
--- NOTE | 2020-08-01 12:26 | PDOC ---
MODERATE SEDATION ASSESSMENT RISKS/ALTERNATIVES Risks/Alternatives Risks and alternatives of this type of sedation and procedure discussed with: RISK/ALTERNATIVES: Patient H & P ON CHART H & P H & P on chart and reviewed for co-morbid conditions and appropriate labs. H&P ON CHART: Yes STATUS PREG STATUS ASSESSED: N/A MEDS/ALLERGIES REVIEWED Meds/Allergies Reviewed Medications and Allergies including time and route of recently administered narcotics and sedatives. MEDS/ALLERGIES REVIEWED: Yes ASA RATING ASA RATING: II AIRWAY ASSESSMENT Airway Assessment Airway patency, oral function limitations, presence of caps, crowns, dentures, partials, and ability to extend neck assessed. AIRWAY ASSESSMENT: Yes MALLAMPATI SCORE MALLAMPATI SCORE: II PRE-SEDATION ASSESSMENT PRE-SEDATION ASSESSMENT: Yes MESSI BARRAGAN MD August 01, 2020 12:26
--- NOTE | 2020-08-01 12:44 | CARD ---
MR#: [id number] Date of Study: 08/01/2020 Ordering Physician: MESSI MARTINEZ, Referring Physician: MESSI MARTINEZ, Tech: RT Diana(R)() APPROVED REPORT Technologist: RT Diana(R)() Nurse: Shelley Shaw RN Procedure(s) performed: FL TIME: 5.8 MINS DOSE: 117 GYCM2 CONTRAST: 104 ML MODERATE SEDATION: 35 MIN LHC, Coronary angiography, Left ventriculogram CS Clinical Frailty Scale [facility] Clinical Frailty Scale: Managing Well Heart Failure Heart Failure: Yes If Yes, Newly Diagnosed: Yes If Yes, HF Type: Diastolic If Yes, NYHA Class: Class II CASE TECHNIQUE IV conscious sedation was used throughout procedure with appropriate monitoring and was performed in the presence of a registered nurse who was an independent trained observer other than the physician p erforming the procedure. During this case, Fluoroscopy and low osmolar contrast were used for imaging . Specimen(s) Removed: N/A Estimated Blood loss: 15 cc's. PROCEDURE NARRATIVE Clinical information: 44-year-old woman presents to the hospital in the setting of chest pain for 4 days with an elevated t roponin of 11. Informed consent: Written informed consent was obtained from the patient after adequate discussion of the risks and murtaza efits of the procedure. Procedure details: ACCESS: The right wrist was prepped and draped in usual sterile fashion. Under 1% lidocaine local anesthesia a 6 Vietnamese Terumo sheath was placed in the right radial artery via the Seldinger technique. DIAGNOSTIC ANGIOGRAPHY: Right and left coronary arteries were engaged with a 6 Vietnamese TIG catheter, JL 3.5 and JR4 catheters. Diagnostic angiography in multiple views were obtained. Next, a 6 Vietnamese pigtail catheter was plac ed in the left ventricle and a LVEDP was measured. A pullback was performed after left ventriculogra phy. All catheters were exchanged over J-tip guidewire. FINDINGS: ======= Aorta: 110/80 LVEDP: 15 mmHg Left ventriculogram: Ejection fraction 55% Normal wall motion without any evidence of aortic or mitral insufficiency. Coronary angiography: LM: Large caliber vessel with normal angiographic appearance LAD: Large caliber vessel with rapid tapering of the mid and distal segment suggestive of SCAD. No im provement with IC NTG. D1: Small caliber vessel with normal angiographic appearance LCX: Moderate caliber non-dominant vessel with normal angiographic appearance. OM1: Moderate caliber vessel with severe and rapid tapering and severe diffuse disease of a smaller c aliber superior branch. The overall appearance consistent with SCAD. No improvement with IC NTG. RCA: Large caliber dominant vessel with normal angiographic appearance. RPDA: Moderate caliber vessel with normal angiographic appearance. CLOSURE: At case completion the right radial sheath was removed and a Terumo radial band was applied with 11 m L of air. Hemostasis was achieved. COMPLICATIONS: No acute complications noted Conclusion 1. Normal left sided filling pressures. 2. Normal LV systolic function. EF 55% 3. 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 Recommendations Aggressive Medical Therapy Signed by : Messi Martinez, Electronically Approved : 08/01/2020 12:43:53
--- NOTE | 2020-08-01 12:55 | CARD ---
MR#: [id number] Date of Study: 08/01/2020 Ordering Physician: AC MORENO, Referring Physician: AC MORENO Tech: Danelle Aldana [facility] APPROVED REPORT EXAM: Two-dimensional and M-mode echocardiogram with Doppler and color Doppler. Other Information Quality : AverageHR: 58bpm Rhythm : NSRTechnically limited study due to body habitus. s/p cath unable to roll INDICATION Cardiac Disease: CAD Chest Pain Echo Enhancing Agent Indication: Endocardial border delineation Agent/Amount Used: Optison 3mL RISK FACTORS Hypertension Obesity Hyperlipidemia 2D DIMENSIONS RVDd2.7 (2.9-3.5cm)Left Atrium(2D)3.5 (1.6-4.0cm) IVSd1.3 (0.7-1.1cm)Aortic Root(2D)2.8 (2.0-3.7cm) LVDd4.0 (3.9-5.9cm)LVOT Diameter2.1 (1.8-2.4cm) PWd1.0 (0.7-1.1cm)LVDs2.8 (2.5-4.0cm) FS (%) 28.8 %SV38.7 ml LVEF(%)55.9 (>50%) Aortic Valve AoV Peak Eitan.143.7cm/sAoV VTI33.8cm AO Peak GR.8.3mmHgLVOT Peak Eitan.95.1cm/s AO Mean GR.3mmHgAVA (VMAX)2.21cm2 Mitral Valve MV E Xkowfrgd686.4cm/sMV DECEL [id number] MV A Uvvrbhaf67.0cm/sE/A Ratio1.5 Pulmonary Vein S1 Qtmwfrqf25.4cm/sD2 Ssfuvhok15.6cm/s PVa [id number] LEFT VENTRICLE The left ventricle is normal size. There is borderline concentric left ventricular hypertrophy. The l eft ventricular systolic function is normal and the ejection fraction is within normal range. EF 55% There is normal LV segmental wall motion. The left ventricular diastolic function and filling is norm al for age. RIGHT VENTRICLE The right ventricle is normal size. There is normal right ventricular wall thickness. The right ventr icular systolic function is normal. ATRIA The left atrium size is normal. The right atrium size is normal. The interatrial septum is intact wit h no evidence for an atrial septal defect or patent foramen ovale as noted on 2-D or Doppler imaging. AORTIC VALVE The aortic valve is normal in structure and function. Doppler and Color Flow revealed no significant aortic regurgitation. There is no significant aortic valvular stenosis. MITRAL VALVE The mitral valve is normal in structure and function. There is no evidence of mitral valve prolapse. There is no mitral valve stenosis. Doppler and Color Flow revealed no mitral valve regurgitation note d. TRICUSPID VALVE The tricuspid valve is normal in structure and function. Doppler and Color Flow revealed no tricuspid valve regurgitation noted. There is no tricuspid valve stenosis. PULMONIC VALVE Doppler and Color Flow revealed no pulmonic valvular regurgitation. There is no pulmonic valvular chay nosis. GREAT VESSELS The aortic root is normal in size. The ascending aorta is normal in size. Due to poor image quality, the IVC could not be assessed. PERICARDIAL EFFUSION There is no evidence of significant pericardial effusion. Critical Notification Critical Value: No <Conclusion> The left ventricular systolic function is normal and the ejection fraction is within normal range. EF 55% There is normal LV segmental wall motion. Signed by : Bart Martinez, Electronically Approved : 08/01/2020 12:54:57
[2020-08-01] MEDS ORDERED: HEPARIN for SUB-Q USE 5,000 UNIT/ML VIAL. SQ SCH (14:00)
--- NOTE | 2020-08-01 14:23 | NUR ---
WHILE IN THE BATHROOM, PT USED CALL LIGHT BECAUSE RT WRIST STARTED TO BLEED. TR BAND STILL IN PLACE WITH 0 MLS OF AIR. TOM PERSAUD, REINSERTED 14 MLS OF AIR. WILL DEFLATE 2MLS OF AIR ACCORDING TO PROTOCOL. PT IN NO ACUTE DISTRESS ALTHOUGH SHE IS FRUSTRATED AT SITUATION. PT IS VERY PLEASANT AT THIS TIME.
--- NOTE | 2020-08-01 18:09 | NUR ---
TR BAND REMOVED FROM RT WRIST. OPSITE PLACED OVER SITE. NO BLEEDING NOTED. ARM BOARD STILL IN PLACE.
[2020-08-01] MEDS ORDERED: ATORVASTATIN CALCIUM 40 MG TABLET. PO SCH (21:00)
[2020-08-02 02:08] LABS: HEMATOCRIT 35.1 % (36.0-47.0); HEMOGLOBIN 11.5 g/dL (12.0-15.5); RED BLOOD COUNT 4.15 x10^6/uL (3.50-5.40); RED CELL DISTRIBUTION WIDTH 13.8 % (11.5-14.5); WHITE BLOOD COUNT 7.1 x10^3/uL (4.0-11.0)
[2020-08-02 02:24] LABS: CHOLESTEROL/HDL RATIO 2.9
[2020-08-02 03:04] VITALS: BP 142/81
[2020-08-02 07:00] VITALS: BP 128/76
[2020-08-02] MEDS ORDERED: CLOPIDOGREL BISULFATE 75 MG TABLET PO SCH (08:00)
[2020-08-02] MEDS: INSULIN LISPRO 300 UNITS/3 ML VIAL. SQ SCH (08:00)
[2020-08-02] MEDS ORDERED: ASPIRIN ENTERIC COATED 81 MG TABLET.DR. PO SCH (08:00)
--- NOTE | 2020-08-02 08:58 | PDOC ---
CARDIO Progress Notes Date and Time Date of Service 08/02/2020 Vitals Vitals Vital Signs Date Time Temp Pulse Resp B/P (MAP) Pulse Ox O2 Delivery O2 Flow Rate FiO2 08/02/20 08:22 64 128/76 08/02/20 07:00 98.1 16 96 Room Air 98.1 08/01/20 10:59 2.0 Weight Weight [ ] Input and Output Intake and Output Intake and Output 08/02/20 07:00 Intake Total 700 ml Output Total 2000 ml Balance -1300 ml Intake Oral 300 ml IV Total 400 ml Output Urine Total 2000 ml Laboratory Labs Laboratory Tests Test 08/01/20 09:10 08/01/20 10:05 08/01/20 12:30 08/01/20 14:10 SARS-CoV-2 RNA (PHIL) Negative (Negative) SARS-CoV-2 Antigen (Rapid) Negative (NEGATIVE) Urine Opiates Screen Neg (NEG) Urine Methadone Screen Neg (NEG) Urine Barbiturates Neg (NEG) Urine Phencyclidine Screen Neg (NEG) Urine Amphetamine/Methamphetamine Neg (NEG) Urine Benzodiazepines Screen Neg (NEG) Urine Cocaine Screen Neg (NEG) Urine Cannabinoids Screen Neg (NEG) Urine Ethyl Alcohol Neg (NEG) Glucose (Fingerstick) 92 mg/dL (70-99) Heparin Anti-Xa Act, Unfractionated 0.26 IU/mL (0.30-0.70) Test 08/01/20 17:46 08/01/20 21:16 08/02/20 02:00 08/02/20 07:01 Glucose (Fingerstick) 113 mg/dL (70-99) 108 mg/dL (70-99) 94 mg/dL (70-99) White Blood Count 7.1 x10^3/uL (4.0-11.0) Red Blood Count 4.15 x10^6/uL (3.50-5.40) Hemoglobin 11.5 g/dL (12.0-15.5) Hematocrit 35.1 % (36.0-47.0) Mean Corpuscular Volume 85 fL (79-100) Mean Corpuscular Hemoglobin 28 pg (25-35) Mean Corpuscular Hemoglobin Concent 33 g/dL (31-37) Red Cell Distribution Width 13.8 % (11.5-14.5) Platelet Count 248 x10^3/uL (140-400) Heparin Anti-Xa Act, Unfractionated 0.51 IU/mL (0.30-0.70) Troponin I Quantitative 3.186 ng/mL (0.000-0.055) Triglycerides Level 103 mg/dL (0-150) Cholesterol Level 126 mg/dL (0-200) LDL Cholesterol, Calculated 61 mg/dL (0-100) VLDL Cholesterol, Calculated 21 mg/dL (0-40) Non-HDL Cholesterol Calculated 82 mg/dL (0-129) HDL Cholesterol 44 mg/dL (40-60) Cholesterol/HDL Ratio 2.9 Assessment Assessment 1. NSTEMI/ACS: LHC revealed SCAD. EF and WM nml 2. HTN: controlled 3. HLP 4. Metabolic syndrome 5. Family hx of premature CAD 6. Morbid obesity 7. Suspected STEVE Recommendations 1. ASA, plavix. cardiac rehab 2. Continue home statin, metoprolol 3. follow up in office AC MORENO APRN August 02, 2020 08:58
[2020-08-02] MEDS ORDERED: METOPROLOL SUCC 24HR ER 25 MG TAB.ER.24H. PO SCH (09:00)
[2020-08-02 10:34] VITALS: BP 159/98
--- NOTE | 2020-08-02 11:37 | PDOC ---
[employer] PROGRESS NOTE Date of Service DOS: DATE: 08/02/20 TIME: 11:37 Chief Complaint Chief Complaint NSTEMI HTN HLD DM2 Plan: Patient was admitted to cardiac floor on heparin drip She will be taken to Mail Agent this morning with with possible PCI Lipid panel and TSH within normal limits Resume home medications when you can HDSS insulin FEN - Cardiac diet PPX - Heparin FULL CODE Dispo - inpatient for above History of Present Illness History of Present Illness Patient is a 44-year-old female with past medical history HTN, DM 2, morbid obesity, who presents to the ED with complaints of intermittent substernal chest pain over the past 4-5 days. She reports chest pain 5/10, and when her chest pain did not spontaneously improve last night, she came to the ED for further ev aluation. Initial troponin was 12.994, with repeat 11.736. She was placed on a heparin drip in the ED. She does admit to a significant family history of cardiac disease, with multiple first-degree relatives having heart attacks <50 years of age. Will admit patient for further medical management. 08/02/2020 Patient denies chest pain or shortness of breath. We discussed compliance with Toprol XL, aspirin, and Plavix. We discussed referral to cardiac rehabilitation for supervised physical activity. 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 Recommended she follow-up with her primary care provider within 5-7 days. Greater than 30 minutes spent managing the discharge of this patient. Vitals/I&O Vitals/I&O: Vital Signs Date Time Temp Pulse Resp B/P (MAP) Pulse Ox O2 Delivery O2 Flow Rate FiO2 08/02/20 10:34 98.1 85 18 159/98 (118) 96 Room Air 98.1 08/01/20 10:59 2.0 I & O 08/01/20 08/01/20 08/02/20 14:52 22:52 06:52 Intake Total 400 ml 300 ml Output Total 400 ml 1100 ml 500 ml Balance 0 ml -1100 ml -200 ml Physical Exam General: Alert, Oriented X3, Cooperative, No acute distress Heart: Regular rate (SR), Normal S1, Normal S2, No murmurs Abdomen: Soft, No tenderness Extremities: No cyanosis, No edema Skin: No breakdown, No significant lesion Labs Labs: Laboratory Tests Test 08/01/20 12:30 08/01/20 14:10 08/01/20 17:46 08/01/20 21:16 Glucose (Fingerstick) 92 mg/dL (70-99) 113 mg/dL (70-99) 108 mg/dL (70-99) Heparin Anti-Xa Act, Unfractionated 0.26 IU/mL (0.30-0.70) Test 08/02/20 02:00 08/02/20 07:01 08/02/20 09:00 08/02/20 11:17 White Blood Count 7.1 x10^3/uL (4.0-11.0) Red Blood Count 4.15 x10^6/uL (3.50-5.40) Hemoglobin 11.5 g/dL (12.0-15.5) Hematocrit 35.1 % (36.0-47.0) Mean Corpuscular Volume 85 fL (79-100) Mean Corpuscular Hemoglobin 28 pg (25-35) Mean Corpuscular Hemoglobin Concent 33 g/dL (31-37) Red Cell Distribution Width 13.8 % (11.5-14.5) Platelet Count 248 x10^3/uL (140-400) Heparin Anti-Xa Act, Unfractionated 0.51 IU/mL (0.30-0.70) 0.67 IU/mL (0.30-0.70) Troponin I Quantitative 3.186 ng/mL (0.000-0.055) Triglycerides Level 103 mg/dL (0-150) Cholesterol Level 126 mg/dL (0-200) LDL Cholesterol, Calculated 61 mg/dL (0-100) VLDL Cholesterol, Calculated 21 mg/dL (0-40) Non-HDL Cholesterol Calculated 82 mg/dL (0-129) HDL Cholesterol 44 mg/dL (40-60) Cholesterol/HDL Ratio 2.9 Glucose (Fingerstick) 94 mg/dL (70-99) 104 mg/dL (70-99) Assessment and Plan Assessmemt and Plan Problems Medical Problems: (1) HTN (hypertension) Status: Acute (2) Hypercholesteremia Status: Acute (3) Obesity Status: Acute Comment Review of Relevant I have reviewed the following items princess (where applicable) has been applied. Medications: Current Medications Medications (Trade) Dose Ordered Sig/Мария Route PRN Reason Start Time Stop Time Status Last Admin Dose Admin Atorvastatin Calcium (Lipitor) 40 mg QHS PO 08/01/20 21:00 08/01/20 20:37 Metoprolol Succinate (Toprol Xl) 25 mg DAILY PO 08/02/20 09:00 08/02/20 08:22 Perflutren Protein Type A Microsphe (Optison) 0.66 mg 1X ONCE IV 08/01/20 12:30 08/01/20 12:31 DC 08/01/20 12:18 Aspirin (Ecotrin) 81 mg DAILYWBKFT PO 08/02/20 08:00 08/02/20 08:22 Clopidogrel Bisulfate (Plavix) 75 mg DAILYWBKFT PO 08/02/20 08:00 08/02/20 08:22 Justifications for Admission Other Justification ALEX GATES MD August 02, 2020 11:37
--- NOTE | 2020-08-02 11:48 | PDOC3 ---
Discharge Summary Visit Information Date of Admission: August 01, 2020 Date of Discharge: August 02, 2020 Final Diagnosis Problems Medical Problems: (1) HTN (hypertension) Status: Acute (2) Hypercholesteremia Status: Acute (3) Obesity Status: Acute Brief Hospital Course Allergies Allergies Coded Allergies Type Severity Reaction Last Updated Verified morphine Adverse Reaction Intermediate drowsy 08/02/20 No Vital Signs Vital Signs Date Time Temp Pulse Resp B/P (MAP) Pulse Ox O2 Delivery O2 Flow Rate FiO2 08/02/20 10:34 98.1 85 18 159/98 (118) 96 Room Air 98.1 08/01/20 10:59 2.0 Lab Results Laboratory Tests Test 07/31/20 23:23 07/31/20 23:45 08/01/20 06:00 08/01/20 07:10 Bedside Urine HCG, Qualitative Hcg negative (Negative) White Blood Count 8.0 x10^3/uL (4.0-11.0) Red Blood Count 4.30 x10^6/uL (3.50-5.40) Hemoglobin 12.1 g/dL (12.0-15.5) Hematocrit 36.2 % (36.0-47.0) Mean Corpuscular Volume 84 fL (79-100) Mean Corpuscular Hemoglobin 28 pg (25-35) Mean Corpuscular Hemoglobin Concent 34 g/dL (31-37) Red Cell Distribution Width 13.8 % (11.5-14.5) Platelet Count 273 x10^3/uL (140-400) Neutrophils (%) (Auto) 66 % (31-73) Lymphocytes (%) (Auto) 24 % (24-48) Monocytes (%) (Auto) 9 % (0-9) Eosinophils (%) (Auto) 0 % (0-3) Basophils (%) (Auto) 1 % (0-3) Neutrophils # (Auto) 5.3 x10^3/uL (1.8-7.7) Lymphocytes # (Auto) 1.9 x10^3/uL (1.0-4.8) Monocytes # (Auto) 0.7 x10^3/uL (0.0-1.1) Eosinophils # (Auto) 0.0 x10^3/uL (0.0-0.7) Basophils # (Auto) 0.1 x10^3/uL (0.0-0.2) Prothrombin Time 13.4 SEC (11.7-14.0) Prothromb Time International Ratio 1.1 (0.8-1.1) Activated Partial Thromboplast Time 40 SEC (24-38) Sodium Level 144 mmol/L (136-145) Potassium Level 4.0 mmol/L (3.5-5.1) Chloride Level 107 mmol/L (98-107) Carbon Dioxide Level 31 mmol/L (21-32) Anion Gap 6 (6-14) Blood Urea Nitrogen 13 mg/dL (7-20) Creatinine 0.8 mg/dL (0.6-1.0) Estimated GFR (Cockcroft-Gault) 94.3 BUN/Creatinine Ratio 16 (6-20) Glucose Level 101 mg/dL (70-99) Calcium Level 8.8 mg/dL (8.5-10.1) Total Bilirubin 0.4 mg/dL (0.2-1.0) Aspartate Amino Transf (AST/SGOT) 36 U/L (15-37) Alanine Aminotransferase (ALT/SGPT) 23 U/L (14-59) Alkaline Phosphatase 62 U/L (46-116) Troponin I Quantitative 12.994 ng/mL (0.000-0.055) 11.736 ng/mL (0.000-0.055) Total Protein 7.5 g/dL (6.4-8.2) Albumin 3.5 g/dL (3.4-5.0) Albumin/Globulin Ratio 0.9 (1.0-1.7) Heparin Anti-Xa Act, Unfractionated < 0.10 IU/mL (0.30-0.70) Triglycerides Level 117 mg/dL (0-150) Cholesterol Level 140 mg/dL (0-200) LDL Cholesterol, Calculated 69 mg/dL (0-100) VLDL Cholesterol, Calculated 23 mg/dL (0-40) Non-HDL Cholesterol Calculated 92 mg/dL (0-129) HDL Cholesterol 48 mg/dL (40-60) Cholesterol/HDL Ratio 2.9 Thyroid Stimulating Hormone (TSH) 1.709 uIU/mL (0.358-3.74) Test 08/01/20 08:16 08/01/20 09:10 08/01/20 10:05 08/01/20 12:30 Glucose (Fingerstick) 85 mg/dL (70-99) 92 mg/dL (70-99) SARS-CoV-2 RNA (PHIL) Negative (Negative) SARS-CoV-2 Antigen (Rapid) Negative (NEGATIVE) Urine Opiates Screen Neg (NEG) Urine Methadone Screen Neg (NEG) Urine Barbiturates Neg (NEG) Urine Phencyclidine Screen Neg (NEG) Urine Amphetamine/Methamphetamine Neg (NEG) Urine Benzodiazepines Screen Neg (NEG) Urine Cocaine Screen Neg (NEG) Urine Cannabinoids Screen Neg (NEG) Urine Ethyl Alcohol Neg (NEG) Test 08/01/20 14:10 08/01/20 17:46 08/01/20 21:16 08/02/20 02:00 Heparin Anti-Xa Act, Unfractionated 0.26 IU/mL (0.30-0.70) 0.51 IU/mL (0.30-0.70) Glucose (Fingerstick) 113 mg/dL (70-99) 108 mg/dL (70-99) White Blood Count 7.1 x10^3/uL (4.0-11.0) Red Blood Count 4.15 x10^6/uL (3.50-5.40) Hemoglobin 11.5 g/dL (12.0-15.5) Hematocrit 35.1 % (36.0-47.0) Mean Corpuscular Volume 85 fL (79-100) Mean Corpuscular Hemoglobin 28 pg (25-35) Mean Corpuscular Hemoglobin Concent 33 g/dL (31-37) Red Cell Distribution Width 13.8 % (11.5-14.5) Platelet Count 248 x10^3/uL (140-400) Troponin I Quantitative 3.186 ng/mL (0.000-0.055) Triglycerides Level 103 mg/dL (0-150) Cholesterol Level 126 mg/dL (0-200) LDL Cholesterol, Calculated 61 mg/dL (0-100) VLDL Cholesterol, Calculated 21 mg/dL (0-40) Non-HDL Cholesterol Calculated 82 mg/dL (0-129) HDL Cholesterol 44 mg/dL (40-60) Cholesterol/HDL Ratio 2.9 Test 08/02/20 07:01 08/02/20 09:00 08/02/20 11:17 Glucose (Fingerstick) 94 mg/dL (70-99) 104 mg/dL (70-99) Heparin Anti-Xa Act, Unfractionated 0.67 IU/mL (0.30-0.70) Laboratory Tests Test 08/01/20 12:30 08/01/20 14:10 08/01/20 17:46 08/01/20 21:16 Glucose (Fingerstick) 92 mg/dL (70-99) 113 mg/dL (70-99) 108 mg/dL (70-99) Heparin Anti-Xa Act, Unfractionated 0.26 IU/mL (0.30-0.70) Test 08/02/20 02:00 08/02/20 07:01 08/02/20 09:00 08/02/20 11:17 White Blood Count 7.1 x10^3/uL (4.0-11.0) Red Blood Count 4.15 x10^6/uL (3.50-5.40) Hemoglobin 11.5 g/dL (12.0-15.5) Hematocrit 35.1 % (36.0-47.0) Mean Corpuscular Volume 85 fL (79-100) Mean Corpuscular Hemoglobin 28 pg (25-35) Mean Corpuscular Hemoglobin Concent 33 g/dL (31-37) Red Cell Distribution Width 13.8 % (11.5-14.5) Platelet Count 248 x10^3/uL (140-400) Heparin Anti-Xa Act, Unfractionated 0.51 IU/mL (0.30-0.70) 0.67 IU/mL (0.30-0.70) Troponin I Quantitative 3.186 ng/mL (0.000-0.055) Triglycerides Level 103 mg/dL (0-150) Cholesterol Level 126 mg/dL (0-200) LDL Cholesterol, Calculated 61 mg/dL (0-100) VLDL Cholesterol, Calculated 21 mg/dL (0-40) Non-HDL Cholesterol Calculated 82 mg/dL (0-129) HDL Cholesterol 44 mg/dL (40-60) Cholesterol/HDL Ratio 2.9 Glucose (Fingerstick) 94 mg/dL (70-99) 104 mg/dL (70-99) Brief Hospital Course Ms. Aponte is a 44 old female who presented with chest pain. Initial troponin was 12.994, with repeat 11.736. Consultation was placed to cardiology. She was placed on a heparin drip and taken to cardiac catheterization; normal left sided filling pressures., normal LV systolic function (EF 55%). 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 She was recommended aggressive medical therapy with aspirin, Plavix, statin, and beta-ana. Discussed medical recommendations given this new finding. Recommend she follow-up with her PCP within the next 5-7 days. Discharge Information Condition at Discharge: Stable Follow Up: Weeks Disposition/Orders: D/C to Home Scheduled Ascorbic Acid (Vitamin C) 500 Mg Capsule.er, 1 CAP PO DAILY for supplement for 30 Days, #30 Ref 0 (Reported) Entered as Reported by: KLAUDIA MCCORMICK on 08/01/20437 Last Action: New Order on 08/01/20437 by KLAUDIA MCCORMICK Atorvastatin Calcium (Atorvastatin Calcium) 40 Mg Tablet, 1 TAB PO QHS for HLD, #90 Ref 3 (Reported) Entered as Reported by: KLAUDIA MCCORMICK on 08/01/20437 Last Action: Continued on 08/01/201018 by ALEX GATES MD Ferrous Gluconate (Iron) 240 Mg Tablet, 1 TAB PO DAILY for supplement for 30 Days, #30 Ref 0 (Reported) Entered as Reported by: KLAUDIA MCCORMICK on 08/01/20437 Last Action: New Order on 08/01/20437 by KLAUDIA MCCORMICK Metformin Hcl (Metformin Hcl) 1,000 Mg Tablet, 1,000 MG PO DAILYWBKFT for ANTI- DIABETIC, Ref 0 (Reported) Entered as Reported by: SAGE GRUBER on 10/04/131628 Last Action: HELD on 08/01/201018 by ALEX GATES MD Metoprolol Succinate (Metoprolol Succinate ( Xl )) 25 Mg Tab.er.24h, 25 MG PO DAILY for FOR HYPERTENSION, #30 Ref 0 (Reported) Entered as Reported by: SAGE GRUBER on 10/04/131628 Last Action: Continued on 08/01/201018 by ALEX GATES MD Multivitamin (Multi Vitamin Daily) 1 Each Tablet, 1 TAB PO DAILY for supplement for 30 Days, #30 Ref 0 (Reported) Entered as Reported by: KLAUDIA MCCORMICK on 08/01/20437 Last Action: New Order on 08/01/20437 by KLAUDIA MCCORMICK Miscellaneous Medications Ergocalciferol (Vitamin D2) (Vitamin D) 400 Unit Tablet, 400 UNIT PO, (Reported) Entered as Reported by: SAGE GRUBER on 10/04/13 1629 Last Action: Reviewed on 08/01/20 0655 by KLAUDIA MCCORMICK Justicifation of Admission Dx: Justifications for Admission: Justification of Admission Dx: Yes ALEX GATES MD August 02, 2020 11:48
[2020-08-02] MEDS ORDERED: CLOP75TA PO (11:53)
[2020-08-02] MEDS ORDERED: ASPI-886 PO (11:53)
--- NOTE | 2020-08-02 12:11 | NUR ---
SS following up with discharge planning. SS reviewed pt chart and discussed with pt RN. Pt is currently on room air. COVID19 negative. Discharge order on the chart for home with self care.
--- NOTE | 2020-08-02 12:18 | NUR ---
Discharge Note: CANDICE HOLDER [address] Discharge instructions and discharge home medications reviewed with Patient and a copy given. All questions have been answered and understanding verbalized. The following instructions and handouts were given: ANGIOGRAM, CARDIAC REHAB Discontinued lines and drains: Peripheral IV intact. Patient discharged to Home or Self Care with Family Member via Ambulated
--- NOTE | 2020-08-02 12:19 | NUR ---
PT BEING DISCHARGED. OPSITE OVER RT WRIST. NO BLEEDING OR SWELLING NOTED. ARM BOARD STILL IN PLACE.
== END 2020-08-02 12:30 | disposition home or self-care (01) | DRG 280 ==
LOC: ER 20:24 → 2 SOUTH 08-01 00:39
PROVIDERS: ADMIT Internal Medicine; ATTEND Internal Medicine
PROC: 4A023N7 Measurement of Cardiac Sampling and Pressure, Left Heart, Percutaneous Approach (ICD-10-PCS; principal; 2020-08-01)
PROC: B2151ZZ Fluoroscopy of Left Heart using Low Osmolar Contrast (ICD-10-PCS; 2020-08-01)
PROC: B2111ZZ Fluoroscopy of Multiple Coronary Arteries using Low Osmolar Contrast (ICD-10-PCS; 2020-08-01)
DX: I21.4 Non-ST elevation (NSTEMI) myocardial infarction (principal); I25.42 Coronary artery dissection; Z68.42 Body mass index [BMI] 45.0-49.9, adult; R79.9 Abnormal finding of blood chemistry, unspecified; E11.9 Type 2 diabetes mellitus without complications; E66.01 Morbid (severe) obesity due to excess calories; E78.00 Pure hypercholesterolemia, unspecified; E78.5 Hyperlipidemia, unspecified; E88.81 Metabolic syndrome and other insulin resistance; I10 Essential (primary) hypertension; I49.9 Cardiac arrhythmia, unspecified; Z82.49 Family history of ischemic heart disease and other diseases of the circulatory system; M19.90 Unspecified osteoarthritis, unspecified site; Z88.8 Allergy status to other drugs, medicaments and biological substances; Z79.899 Other long term (current) drug therapy; Z20.822 Contact with and (suspected) exposure to COVID-19
CPT/HCPCS: 36415; 71045; 80053; 80061; 80307; 81025; 82962; 84443; 84484; 85025; 85027; 85520; 85610; 85730; 87426; 93005; 93306; 93458; 96361; 96374; 99152; 99153; J1644; J1815; J2250; J3010; J3490; J7040; Q9956; Q9967; U0003; U0005; 99285-25; G0378

== ENCOUNTER 2020-08-06 22:45 | Inpatient (IN) | payer BC ==
[~2020-08-06] VITALS: Ht 175.3 cm; Wt 148.0 kg
[~2020-08-06 22:45] MED LIST changes: +ASCO500C PO; +ASPI-886 PO; +ATOR40TA59 PO; +CLOP75TA PO; +FERR240T11 PO; +MULT-245 PO
--- NOTE | 2020-08-06 22:52 | PHYS DOC ---
Past Medical History Past Medical History: Diabetes-Type II, High Cholesterol, Hypertension Past Surgical History: Other Additional Past Surgical Histo: right ankle; oral surgery Smoking Status: Never Smoker Alcohol Use: None Drug Use: None General Adult EDM: Chief Complaint: CHEST PAIN HPI: HPI: Patient is a 44-year-old female presenting for chest pain. She was seen and evaluated in our facility August 01 myself for chest pain. She was found to have a significant NSTEMI and admitted to our hospital. She underwent cardiac catheterization that was remarkable for the following findings: 1. Normal left sided filling pressures. 2. Normal LV systolic function. EF 55% 3. 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 She was ultimately discharged home with aggressive medical therapy and close PCP and cardiology follow-up. She has been taking 81 mg aspirin and Plavix daily in addition to other GDMT medications without compliance issues. Reports this evening approximately 3 to 4 hours prior to arrival she started developing 6/10 chest pressure and associated right arm numbness. She reports "feeling off" which concerned her prompting her to come in for evaluation. Review of Systems: Review of Systems: Fourteen body systems of review of systems have been reviewed. See HPI for pertinent positives and negative responses, other vaz all other systems are negative, non-pertinent or non-contributory Heart Score: C/O Chest Pain: Yes HEART Score for Chest Pain: HEART Score for Chest Pain Response (Comments) Value History Highly Suspicious 2 ECG Nonspecific Repolarizatio 1 Age < 45 0 Risk Factors 1 or 2 Risk Factors 1 Total 4 Risk Factors: Risk Factors: DM, Current or recent (<one month) smoker, HTN, HLP, family history of CAD, obesity. Risk Scores: Score 0 - 3: 2.5% MACE over next 6 weeks - Discharge Home Score 4 - 6: 20.3% MACE over next 6 weeks - Admit for Clinical Observation Score 7 - 10: 72.7% MACE over next 6 weeks - Early Invasive Strategies Allergies: Allergies: Allergies Coded Allergies Type Severity Reaction Last Updated Verified morphine Adverse Reaction Intermediate drowsy 08/02/20 No Physical Exam: PE: Constitutional: Well developed, well nourished, no acute distress, non-toxic appearance. HENT: Normocephalic, atraumatic, bilateral external ears normal, oropharynx moist, no oral exudates, nose normal. Eyes: PERRLA, EOMI, conjunctiva normal, no discharge. Neck: Normal range of motion, no tenderness, supple, no stridor. Cardiovascular: Heart rate regular, sinus rhythm, no murmurs rubs or gallops Lungs & Thorax: Bilateral breath sounds clear to auscultation Abdomen: Bowel sounds normal, soft, no tenderness, no masses, no pulsatile masses. Nonsurgical abdomen, no peritoneal signs Skin: Warm, dry, no erythema, no rash. Back: No tenderness, no CVA tenderness. Extremities: No tenderness, no cyanosis, no clubbing, ROM intact, no edema. Neurologic: Alert and oriented X 3, grossly normal motor & sensory function, no focal deficits noted. Psychologic: Affect normal, judgement normal, mood normal. Current Patient Data: Labs: Laboratory Tests Test 08/06/20 23:00 08/07/20 06:10 08/07/20 08:23 08/07/20 09:30 White Blood Count 9.1 x10^3/uL 8.1 x10^3/uL Red Blood Count 4.53 x10^6/uL 4.20 x10^6/uL Hemoglobin 12.9 g/dL 12.0 g/dL Hematocrit 38.4 % 35.7 % Mean Corpuscular Volume 85 fL 85 fL Mean Corpuscular Hemoglobin 29 pg 29 pg Mean Corpuscular Hemoglobin Concent 34 g/dL 34 g/dL Red Cell Distribution Width 14.0 % 14.0 % Platelet Count 289 x10^3/uL 262 x10^3/uL Neutrophils (%) (Auto) 59 % 58 % Lymphocytes (%) (Auto) 29 % 30 % Monocytes (%) (Auto) 10 % 11 % Eosinophils (%) (Auto) 1 % 0 % Basophils (%) (Auto) 1 % 1 % Neutrophils # (Auto) 5.3 x10^3/uL 4.6 x10^3/uL Lymphocytes # (Auto) 2.6 x10^3/uL 2.4 x10^3/uL Monocytes # (Auto) 0.9 x10^3/uL 0.9 x10^3/uL Eosinophils # (Auto) 0.1 x10^3/uL 0.0 x10^3/uL Basophils # (Auto) 0.1 x10^3/uL 0.1 x10^3/uL Prothrombin Time 12.3 SEC Prothromb Time International Ratio 1.0 Activated Partial Thromboplast Time 36 SEC Sodium Level 145 mmol/L 144 mmol/L Potassium Level 4.4 mmol/L 4.1 mmol/L Chloride Level 107 mmol/L 108 mmol/L Carbon Dioxide Level 30 mmol/L 28 mmol/L Anion Gap 8 8 Blood Urea Nitrogen 12 mg/dL 13 mg/dL Creatinine 1.0 mg/dL 0.8 mg/dL Estimated GFR (Cockcroft-Gault) 72.9 94.3 Glucose Level 127 mg/dL 103 mg/dL Calcium Level 8.5 mg/dL 8.2 mg/dL Troponin I Quantitative 0.130 ng/mL 19.630 ng/mL [id number]-Nuq-O-Type Natriuretic Peptide 267 pg/mL Heparin Anti-Xa Act, Unfractionated 0.68 IU/mL BUN/Creatinine Ratio 16 Magnesium Level 2.1 mg/dL Total Bilirubin 0.4 mg/dL Aspartate Amino Transf (AST/SGOT) 59 U/L Alanine Aminotransferase (ALT/SGPT) 35 U/L Alkaline Phosphatase 83 U/L Total Protein 7.2 g/dL Albumin 3.3 g/dL Albumin/Globulin Ratio 0.8 Triglycerides Level 96 mg/dL Cholesterol Level 123 mg/dL LDL Cholesterol, Calculated 55 mg/dL VLDL Cholesterol, Calculated 19 mg/dL Non-HDL Cholesterol Calculated 74 mg/dL HDL Cholesterol 49 mg/dL Cholesterol/HDL Ratio 2.5 Glucose (Fingerstick) 101 mg/dL SARS-CoV-2 RNA (PHIL) Positive SARS-CoV-2 Antigen (Rapid) Negative Test 08/07/20 09:55 Heparin Anti-Xa Act, Unfractionated 0.77 IU/mL Troponin I Quantitative 20.514 ng/mL Current Medications Medications (Trade) Dose Ordered Sig/Мария Route PRN Reason Start Time Stop Time Status Last Admin Dose Admin Aspirin (Aspirin Chewable) 324 mg 1X ONCE PO 08/06/20 23:00 08/06/20 23:10 DC Nitroglycerin (Nitrostat) 0.4 mg PRN Q5MIN PRN SL CHEST PAIN 08/06/20 23:15 08/06/20 23:20 Nitroglycerin/ Dextrose 250 ml @ 0 mls/hr 1X ONCE IV 08/06/20 23:15 08/06/20 23:16 DC 08/06/20 23:38 Aspirin (Aspirin Chewable) 162 mg 1X ONCE PO 08/06/20 23:15 08/06/20 23:16 DC 08/06/20 23:19 Vital Signs: Vital Signs Date Time Temp Pulse Resp B/P (MAP) Pulse Ox O2 Delivery O2 Flow Rate FiO2 08/06/20 22:45 98.8 70 20 210/100 (136) 100 Room Air 98.8 08/07/20 12:15 2.0 Vital Signs Date Time Temp Pulse Resp B/P (MAP) Pulse Ox O2 Delivery O2 Flow Rate FiO2 08/07/20 12:24 23 100 Nasal Cannula 2.0 08/07/20 12:23 58 163/94 08/07/20 11:00 98.9 98.9 EKG: EKG: EKG ordered and interpreted by myself at 2300 hrs. as sinus rhythm at 68 bpm, unremarkable intervals, no axis deviation, no STEMI Prior EKG ordered August 01, 2020 reviewed and compared to today's, no significant change noted Repeat EKG ordered and interpreted by myself at 2349 hrs. as sinus rhythm at 68 bpm, unremarkable intervals, no axis deviation, suspect ST wave inversion noted in aVL, ST wave elevation in leads II, 3, aVF without reciprocal changes and otherwise unchanged from above Patient complained of chest palpitations after change in rhythm strip on ER monitor. Repeat EKG ordered and interpreted by myself at 00 28 hours as an accelerated junctional rhythm with a rate at 95, prolonged QRS at 124 and prolonged QTC at 481 otherwise unremarkable intervals, right axis deviation, no STEMI Radiology/Procedures: Radiology/Procedures: Exam: Chest one view INDICATION: Chest pain TECHNIQUE: Frontal view of the chest Comparisons: 07/31/2020 FINDINGS: The cardiomediastinal silhouette and pulmonary vessels are within normal limits. The lung and pleural spaces are clear. IMPRESSION: No acute cardiopulmonary process. Electronically signed by: Maryann Salgado MD (08/06/2020 11:27 PM) [facility] Course & Med Decision Making: Course & Med Decision Making Hypertensive on arrival. Patient took aspirin and Plavix today, 162 mg aspirin and x1 sublingual nitro administered while in ER. Subsequent nitro drip started for patient's blood pressure of 210/109 and recent finding of LAD and Lcx dissection (caused by underlying connective tissue disorder?) Symptoms improved. Patient has elevated troponin, unsure if this is chronic from recent heart catheterization versus new. Repeat EKG concerning with changes noted in inferior leads without officially meeting STEMI criteria. Dr. Mohan consulted and EKGs reviewed in addition to entire case due to complexity Recommendations were to continue nitro drip. Start heparin drip, continue serial enzymes and EKGs with cardiology to follow in the morning Prior to transport to [facility], patient's rhythm converted to an unidentifiable rhythm on ER monitor with complaints of chest palpitations. Pads were placed and repeat EKG obtained. EKG showing idioventricular rhythm, nonetheless ~5 minutes after onset this spontaneously converted back to sinus with improvement in symptoms. On-call muck miner blasting notified, no change in plan of care I discussed need for admission with patient who was amenable given symptoms that have not fully resolved and concerning recent cardiac history. She will require further inpatient workup and intervention as necessary This patient required critical care. Due to the fact that the patient required a significant amount of one on one physician patient contact time, ordering and review of studies, arranging urgent treatment with development of a management plan, evaluation of patients response to treatment with frequent reassessments, and discussions with other providers this patient required critical care time 60min Critical care time was indicated due to the inherent instability and/or potential for instability in this patient. The critical care time that is allocated to this patient is above and beyond any time spent on any other billable procedures performed on this patient. [place] Disclaimer: Angeline Disclaimer: This electronic medical record was generated, in whole or in part, using a voice recognition dictation system. Departure Departure Impression: Primary Impression: Hypertensive urgency Additional Impressions: Dissection of coronary artery Elevated troponin Disposition: ADMITTED INPATIENT Admitting Physician: BRADLEY (dr lopez) Condition: GUARDED Referrals: NO PCP (PCP) ARNULFO HALL DO August 06, 2020 22:52
[2020-08-06] MEDS ORDERED: ASPIRIN CHEWABLE 81 MG TABLET. PO ONE ×2 (23:00→23:15)
[2020-08-06 23:09] LABS: BASO # 0.1 x10^3/uL (0.0-0.2); BASO % 1 % (0-3); EOS # 0.1 x10^3/uL (0.0-0.7); EOS % 1 % (0-3); HEMATOCRIT 38.4 % (36.0-47.0); HEMOGLOBIN 12.9 g/dL (12.0-15.5); LYMPH # 2.6 x10^3/uL (1.0-4.8); LYMPH % 29 % (24-48); MEAN CORPUSCULAR HEMOGLOBIN 29 pg (25-35); MEAN CORPUSCULAR HGB CONC 34 g/dL (31-37); MEAN CORPUSCULAR VOLUME 85 fL (79-100); MONO # 0.9 x10^3/uL (0.0-1.1); MONO % 10 % (0-9); NEUT # 5.3 x10^3/uL (1.8-7.7); NEUT % 59 % (31-73); PLATELET COUNT 289 x10^3/uL (140-400); RED BLOOD COUNT 4.53 x10^6/uL (3.50-5.40); WHITE BLOOD COUNT 9.1 x10^3/uL (4.0-11.0)
[2020-08-06] MEDS ORDERED: NITROGLYCERIN PREMIX 250 ML IV ONE (23:15)
[2020-08-06] MEDS ORDERED: NITROGLYCERIN SUBLINGUAL 0.4 MG BOTTLE OF 25. SL PRN (23:15)
[2020-08-06 23:17] LABS: CALCIUM 8.5 mg/dL (8.5-10.1); GFR 72.9; POTASSIUM 4.4 mmol/L (3.5-5.1)
[2020-08-06 23:19] LABS: PROTHROMBIN TIME PATIENT 12.3 SEC (11.7-14.0)
--- NOTE | 2020-08-06 23:30 | RAD ---
Exam: Chest one view INDICATION: Chest pain TECHNIQUE: Frontal view of the chest Comparisons: 07/31/2020 FINDINGS: The cardiomediastinal silhouette and pulmonary vessels are within normal limits. The lung and pleural spaces are clear. IMPRESSION: No acute cardiopulmonary process. Electronically signed by: Maryann Salgado MD (08/06/2020 11:27 PM) [facility]
[2020-08-07] VITALS (29 sets, daily range): BP systolic 117–191; BP diastolic 63–101
[2020-08-07] MEDS ORDERED: ACETAMINOPHEN 325 MG TABLET. PO PRN
[2020-08-07] MEDS ORDERED: HEPARIN for IV BOLUS 10,000 UNIT/10 ML VIAL. IV ONE (00:30)
[2020-08-07] MEDS ORDERED: HEPARIN for IV BOLUS 10,000 UNIT/10 ML VIAL. IV PRN (00:30)
--- NOTE | 2020-08-07 00:35 | EKG ---
[facility] [address] [place] [address] Test Date: 2020-08-06 Test Time: 23:42:00 Pat Name: CANDICE HOLDER Department: Room: Gender: F Nutrition Manager: : 1975 Requested By: ARNULFO HALL Order Number: [id number] Reading MD: Measurements Intervals Ashley Rate: 68 P: 38 NM: 146 QRS: 21 QRSD: 90 T: 51 QT: 360 QTc: 383 Interpretive Statements SINUS RHYTHM QRS(T) CONTOUR ABNORMALITY CONSISTENT WITH SEPTAL INFARCT PROBABLY OLD ST & T ABNORMALITY, CONSIDER RECENT INFERIOR MYOCARDIAL OR PERICARDIAL DAMAGE ABNORMAL ECG RI6.01 No previous ECG available for comparison
[2020-08-07] MEDS: HEPARIN 25,000UTS/250ML PREMIX 250 ML IV PRN ×2 (00:43→08:14)
--- NOTE | 2020-08-07 02:00 | NUR ---
The patient, CANDICE HOLDER, 44 y/o, F admitted by GUTIERREZ MEZA III, DO, was given written information regarding hospital policies, unit procedures and contact persons. Admission and assessment complete, pt continue of heparin gtt and nitro gtt. call light in place, will cont to monitor pt status and safe. pmrn
[2020-08-07 06:39] LABS: BASO # 0.1 x10^3/uL (0.0-0.2); BASO % 1 % (0-3); EOS % 0 % (0-3); HEMATOCRIT 35.7 % (36.0-47.0); LYMPH # 2.4 x10^3/uL (1.0-4.8); LYMPH % 30 % (24-48); MEAN CORPUSCULAR HEMOGLOBIN 29 pg (25-35); MEAN CORPUSCULAR HGB CONC 34 g/dL (31-37); MEAN CORPUSCULAR VOLUME 85 fL (79-100); MONO # 0.9 x10^3/uL (0.0-1.1); MONO % 11 % (0-9); NEUT # 4.6 x10^3/uL (1.8-7.7); NEUT % 58 % (31-73); PLATELET COUNT 262 x10^3/uL (140-400); WHITE BLOOD COUNT 8.1 x10^3/uL (4.0-11.0)
[2020-08-07 06:51] LABS: CHOLESTEROL/HDL RATIO 2.5
[2020-08-07 07:10] LABS: ALBUMIN 3.3 g/dL (3.4-5.0); ALBUMIN/GLOBULIN RATIO 0.8 (1.0-1.7); CALCIUM 8.2 mg/dL (8.5-10.1); CREATININE 0.8 mg/dL (0.6-1.0); GFR 94.3; MAGNESIUM 2.1 mg/dL (1.8-2.4); POTASSIUM 4.1 mmol/L (3.5-5.1); TOTAL BILIRUBIN 0.4 mg/dL (0.2-1.0); TOTAL PROTEIN 7.2 g/dL (6.4-8.2)
--- NOTE | 2020-08-07 07:39 | EKG ---
[facility] [address] [place] [address] Test Date: 2020-08-07 Test Time: 00:18:14 Pat Name: CANDICE HOLDER Department: Room: Gender: F Otorhinolaryngologist: : 1975 Requested By: ARNULFO HALL Order Number: [id number] Reading MD: Measurements Intervals [place] Rate: 95 P: [place]: QRS: 255 QRSD: 124 T: 55 QT: 380 QTc: 481 Interpretive Statements ACCELERATED JUNCTIONAL RHYTHM ABNORMAL RIGHT SUPERIOR AXIS DEVIATION CORVH WITH REPOLARIZATION ABNORMALITY QRS(T) CONTOUR ABNORMALITY NSISTENT WITH ANTERIOR INFARCT POSSIBLY RECENT CONSISTENT WITH INFEROLATERAL INFARCT POSSIBLY RECENT ST-T ELEVATION, CONSIDER ACUTE ANTERIOR INFARCT ST-T ELEVATION, CONSIDER ACUTE INFERIOR INFARCT ABNORMAL ECG RI6.02 Compared to ECG 08/06/2020 23:42:00 Accelerated junctional rhythm now present Right superior axis now present Right ventricular hypertrophy now present Early repolarization now present Sinus rhythm no longer present T-wave abnormality no longer present Myocardial infarct finding still present
[2020-08-07] MEDS ORDERED: SIMETHICONE 80 MG TAB.CHEW PO PRN (08:45)
--- NOTE | 2020-08-07 08:47 | HP ---
ADMIT DATE: 08/07/2020 CHIEF COMPLAINT: Chest pain. HISTORY OF PRESENT ILLNESS: The patient is a pleasant 44-year-old female who had a cardiac catheterization just 5 days ago. Apparently during that cardiac catheterization, they found a spontaneous dissection of the LAD and circumflex. She was sent home with beta blockade, Plavix and aspirin. She was doing well until yesterday when she developed chest pain again. Rates her symptoms at 7/10. She has some associated palpitations. While in the ER, her troponin was slightly high at 0.1. I discussed the case with ER physician. We admitted her overnight for consultation with Cardiology. This morning, her troponin has bumped up to 19.6. PAST MEDICAL HISTORY: The above-mentioned coronary disease with dissection of the LAD and circumflex, diabetes, hypertension, hyperlipidemia, right ankle surgery, oral surgery. ALLERGIES: MORPHINE. FAMILY HISTORY: Diabetes. SOCIAL HISTORY: She does drink, smoke or take drugs. 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 MEDICATIONS: Reviewed. Please refer to the MRAD. REVIEW OF SYSTEMS: CARDIAC: She complains of chest pain. GENERAL: No history of weight change, weakness or fevers. SKIN: No bruising, hair changes or rashes. EYES: No blurred, double or loss of vision. NOSE AND THROAT: No history of nosebleeds, hoarseness or sore throat. LUNGS: Denies cough, hemoptysis, wheezing or shortness of breath. GASTROINTESTINAL: Denies changes in appetite, nausea, vomiting, diarrhea or constipation. GENITOURINARY: No history of frequency, urgency, hesitancy or nocturia. NEUROLOGIC: Denies history of numbness, tingling, tremor or weakness. PSYCHIATRIC: No history of panic, anxiety or depression. ENDOCRINE: No history of heat or cold intolerance, polyuria or polydipsia. EXTREMITIES: Denies muscle weakness, joint pain, pain on walking or stiffness. PHYSICAL EXAMINATION: VITAL SIGNS: Within normal limits and are stable. GENERAL: No apparent distress. Alert and oriented. HENT: Normal cephalic atraumatic, external auditory canals are patent. EYES: Extraocular muscles are intact, pupils are equally round and reactive to light and accommodation. MUSCULOSKELETAL: Well-developed, well nourished, good range of motion. ENDOCRINE: No thyromegaly was palpated. LYMPHATICS: No cervical chain or axillary nodes were noted. HEMATOPOIETIC: No bruising. NECK: Supple. No JVD, no thyromegaly was noted. LUNGS: Clear to auscultation in all lung [place] without rhonchi or wheezing. HEART: RRR, S1, S2 present. Peripheral pulses intact, no obvious murmurs were noted. ABDOMEN: Soft, nontender. Positive bowel sounds no organomegaly, normal bowel sounds. EXTREMITIES: Without any cyanosis, clubbing, or edema. Pedal pulses intact, Homans sign is negative. NEUROLOGIC: Normal speech, normal tone. A and O x 3, moves all extremities, no obvious focal deficits. PSYCHIATRIC: Normal affect, normal mood. Stable. SKIN: No ulcerations or rashes, good skin turgor, no jaundice. VASCULAR: Good capillary refill, neurovascular bundle appears to be intact. LABORATORY DATA: Troponin is 19. ASSESSMENT AND PLAN: Acute myocardial infarction. The patient has been admitted. We got her on heparin drip and nitroglycerin drip, serial enzymes, serial EKGs, cardiac monitoring home meds. DVT prophylaxis. Full code. Suspect she will need to go to cardiac sleep lab technician, but await Cardiology's input on that. Long-term prognosis is guarded. [facility] [place] DR: KATHRYN/robert TID: [id number]
--- NOTE | 2020-08-07 09:13 | EKG ---
[facility] [address] [place] [address] Test Date: 2020-08-07 Test Time: 09:08:26 Pat Name: CANDICE HOLDER Department: Room: Gender: F Home Care Coordinator: [place] : 1975 Requested By: ARNULFO HALL Order Number: [id number] Reading MD: Measurements Intervals [place] Rate: 64 P: 43 NJ: 160 QRS: 15 QRSD: 86 T: -26 QT: 464 QTc: 478 Interpretive Statements SINUS RHYTHM T ABNORMALITY IN ANTERIOR LEADS INFEROLATERAL LEADS PROLONGED QT ABNORMAL ECG RI6.02 Compared to ECG 08/07/2020 00:18:14 T-wave abnormality now present Prolonged QT interval now present Accelerated junctional rhythm no longer present Right superior axis no longer present Early repolarization no longer present Myocardial infarct finding no longer present
--- NOTE | 2020-08-07 09:21 | PDOC ---
AC MORENO ELECTRIC MULE DRIVER 08/07/20 0921: CARDIO Progress Notes Date and Time Date of Service 08/07/2020 Time of Evaluation 0900 Subjective Subjective: No Chest Pain, No shortness of breath, No Palpitations Vitals Vitals Vital Signs Date Time Temp Pulse Resp B/P (MAP) Pulse Ox O2 Delivery O2 Flow Rate FiO2 08/07/20 07:00 64 159/84 (109) Room Air 08/07/20 02:51 98.1 18 97 98.1 Weight Weight [ ] Input and Output Intake and Output Intake and Output 08/07/20 07:00 Intake Total 87.77 ml Balance 87.77 ml Intake IV Total 87.77 ml # Voids 1 Laboratory Labs Laboratory Tests Test 08/06/20 23:00 08/07/20 06:10 08/07/20 08:23 White Blood Count 9.1 x10^3/uL (4.0-11.0) 8.1 x10^3/uL (4.0-11.0) Red Blood Count 4.53 x10^6/uL (3.50-5.40) 4.20 x10^6/uL (3.50-5.40) Hemoglobin 12.9 g/dL (12.0-15.5) 12.0 g/dL (12.0-15.5) Hematocrit 38.4 % (36.0-47.0) 35.7 % (36.0-47.0) Mean Corpuscular Volume 85 fL (79-100) 85 fL (79-100) Mean Corpuscular Hemoglobin 29 pg (25-35) 29 pg (25-35) Mean Corpuscular Hemoglobin Concent 34 g/dL (31-37) 34 g/dL (31-37) Red Cell Distribution Width 14.0 % (11.5-14.5) 14.0 % (11.5-14.5) Platelet Count 289 x10^3/uL (140-400) 262 x10^3/uL (140-400) Neutrophils (%) (Auto) 59 % (31-73) 58 % (31-73) Lymphocytes (%) (Auto) 29 % (24-48) 30 % (24-48) Monocytes (%) (Auto) 10 % (0-9) 11 % (0-9) Eosinophils (%) (Auto) 1 % (0-3) 0 % (0-3) Basophils (%) (Auto) 1 % (0-3) 1 % (0-3) Neutrophils # (Auto) 5.3 x10^3/uL (1.8-7.7) 4.6 x10^3/uL (1.8-7.7) Lymphocytes # (Auto) 2.6 x10^3/uL (1.0-4.8) 2.4 x10^3/uL (1.0-4.8) Monocytes # (Auto) 0.9 x10^3/uL (0.0-1.1) 0.9 x10^3/uL (0.0-1.1) Eosinophils # (Auto) 0.1 x10^3/uL (0.0-0.7) 0.0 x10^3/uL (0.0-0.7) Basophils # (Auto) 0.1 x10^3/uL (0.0-0.2) 0.1 x10^3/uL (0.0-0.2) Prothrombin Time 12.3 SEC (11.7-14.0) Prothromb Time International Ratio 1.0 (0.8-1.1) Activated Partial Thromboplast Time 36 SEC (24-38) Sodium Level 145 mmol/L (136-145) 144 mmol/L (136-145) Potassium Level 4.4 mmol/L (3.5-5.1) 4.1 mmol/L (3.5-5.1) Chloride Level 107 mmol/L (98-107) 108 mmol/L (98-107) Carbon Dioxide Level 30 mmol/L (21-32) 28 mmol/L (21-32) Anion Gap 8 (6-14) 8 (6-14) Blood Urea Nitrogen 12 mg/dL (7-20) 13 mg/dL (7-20) Creatinine 1.0 mg/dL (0.6-1.0) 0.8 mg/dL (0.6-1.0) Estimated GFR (Cockcroft-Gault) 72.9 94.3 Glucose Level 127 mg/dL (70-99) 103 mg/dL (70-99) Calcium Level 8.5 mg/dL (8.5-10.1) 8.2 mg/dL (8.5-10.1) Troponin I Quantitative 0.130 ng/mL (0.000-0.055) 19.630 ng/mL (0.000-0.055) HO-Gfg-X-Type Natriuretic Peptide 267 pg/mL (0-124) Heparin Anti-Xa Act, Unfractionated 0.68 IU/mL (0.30-0.70) BUN/Creatinine Ratio 16 (6-20) Magnesium Level 2.1 mg/dL (1.8-2.4) Total Bilirubin 0.4 mg/dL (0.2-1.0) Aspartate Amino Transf (AST/SGOT) 59 U/L (15-37) Alanine Aminotransferase (ALT/SGPT) 35 U/L (14-59) Alkaline Phosphatase 83 U/L (46-116) Total Protein 7.2 g/dL (6.4-8.2) Albumin 3.3 g/dL (3.4-5.0) Albumin/Globulin Ratio 0.8 (1.0-1.7) Triglycerides Level 96 mg/dL (0-150) Cholesterol Level 123 mg/dL (0-200) LDL Cholesterol, Calculated 55 mg/dL (0-100) VLDL Cholesterol, Calculated 19 mg/dL (0-40) Non-HDL Cholesterol Calculated 74 mg/dL (0-129) HDL Cholesterol 49 mg/dL (40-60) Cholesterol/HDL Ratio 2.5 Glucose (Fingerstick) 101 mg/dL (70-99) Physical Exam HEENT: Neck Supple W Full Motion Chest: Symmetric LUNGS: Clear to Auscultation Heart: S1S2, RRR (SR), murmurs (WILEY systolic murmur 3/6) Abdomen: Soft N/T Extremities: No Edema, No Calf Tenderness Neurology: alert, oriented, follow commands Assessment Assessment HPI: Consult is for chest pain requested by Dr. Doyle. This is a 44 yo female admitted for complains of chest pain. 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 Reports that she was doing well. In the last couple of days she has been having episodes of bloating which was relieved by tums. Yesterday she having the same issue and some chest pressure and took at least 5 tums but no relief. Also started having numbness to her left hand and had some episodes of palpitations and diaphoresis. Upon arrival to ED she was noted with elevated troponin and also labile BP. She was then placed on NTG and heparin drip. Presently she still has lingering chest discomfort 3/10 pain scale pressure like. 1. ACS; Trop up to 19.3 with EKG changes 2. HTN: controlled 3. HLP 4. Metabolic syndrome 5. Family hx of premature CAD 6. Morbid obesity 7. Suspected STEVE 8. CAD; Recent LHC 08/01/2020 revealed SCAD to LAD and LCx treated medically. Recent EF and WM nml via TTE 9. Paroxysmal AIVR Recommendations 1. ASA, plavix. Heparin drip, NTG drip titrate. Start on IVF 2. Secondary prevention measures 3. LHC today, risks and benefits discussed and agreeable to proceed 4. Wt loss and diet modification Justicifation of Admission Dx: Justifications for Admission: Justification of Admission Dx: Yes MESSI BARRAGAN MD 08/07/20 1807: CARDIO Progress Notes Plan Plan The patient was seen and interviewed as well as examined at the bedside. The chart was reviewed. The case was discussed. Agree with the plan of care. AC MORENO APRN August 07, 2020 09:21 MESSI BARRAGAN MD August 07, 2020 18:07
[2020-08-07] MEDS ORDERED: IV 1/2 NORMAL SALINE 1,000 ML IV ONE (09:30)
[2020-08-07] MEDS ORDERED: LIDOCAINE 1% PF 2 ML VIAL. ONE (10:52)
[2020-08-07] MEDS ORDERED: IODIXANOL 320 MG/ML 100 ML VIAL. ONE ×2 (10:52)
[2020-08-07] MEDS ORDERED: HEPARIN for ARTERIAL LINE 1,500 ML ONE (10:52)
[2020-08-07] MEDS ORDERED: HEPARIN for IV BOLUS 10,000 UNIT/10 ML VIAL. ONE (10:54)
[2020-08-07] MEDS ORDERED: fentaNYL PF VIAL 100 MCG/2 ML VIAL ONE (10:54)
[2020-08-07] MEDS ORDERED: MIDAZOLAM HCL/PF 5 MG/5 ML VIAL. ONE (10:54)
[2020-08-07] MEDS ORDERED: NITROGLYCERIN 200 MCG/2 ML SYRINGE FOR CATH/VASC LAB. ONE ×3 (10:54→11:56)
[2020-08-07] MEDS ORDERED: VERAPAMIL 5 MG/2 ML VIAL. ONE (10:54)
[2020-08-07] MEDS ORDERED: MIDAZOLAM HCL/PF 5 MG/5 ML VIAL. IV ONE (11:45)
[2020-08-07] MEDS ORDERED: NITROGLYCERIN 200 MCG/2 ML SYRINGE FOR CATH/VASC LAB. IART ONE (11:45)
[2020-08-07] MEDS ORDERED: IODIXANOL 320 MG/ML 100 ML VIAL. IART ONE (11:45)
[2020-08-07] MEDS ORDERED: HEPARIN for IV BOLUS 10,000 UNIT/10 ML VIAL. IART ONE (11:45)
[2020-08-07] MEDS ORDERED: fentaNYL PF VIAL 100 MCG/2 ML VIAL IV ONE (11:45)
[2020-08-07] MEDS ORDERED: VERAPAMIL 5 MG/2 ML VIAL. IART ONE (11:45)
[2020-08-07] MEDS ORDERED: LIDOCAINE 1% PF 2 ML VIAL. INJ ONE (11:45)
[2020-08-07] MEDS ORDERED: NITROGLYCERIN 200 MCG/2 ML SYRINGE FOR CATH/VASC LAB. ICAR ONE (12:00)
--- NOTE | 2020-08-07 12:12 | NUR ---
SS following for discharge planning. SS reviewed pt chart and discussed with pt RN. Pt is from home with spouse and is currently on room air. COVID19 negative. Pt on Heparin drip. Heart cath today. SS will continue to follow for discharge planning.
--- NOTE | 2020-08-07 13:03 | NUR ---
SS received notification that pt needed transfer to due to SCAD and need for Cardio Thoracic surgeon. SS contacted transfer team, , and spoke with Allison. Request for transfer made. SS faxed records as requested to [phone]. Images clouded to by Radiology, [id number]. Packet, transfer form, and ambulance form on the chart. SS will continue to follow for discharge planning.
[2020-08-07] MEDS ORDERED: amLODIPine BESYLATE 5 MG TABLET PO ONE (14:45)
[2020-08-07] MEDS ORDERED: ASPIRIN ENTERIC COATED 81 MG TABLET.DR. PO SCH (15:00)
[2020-08-07] MEDS ORDERED: METOPROLOL SUCC 24HR ER 25 MG TAB.ER.24H. PO SCH (15:00)
--- NOTE | 2020-08-07 15:35 | NUR ---
SS following up with discharge planning. Pt accepted at , [address] [place] [address]. Accepting physician, Dr. Percy Avalos. Bed#[id number]. Report# [phone]. Pt will discharge today and go to at 1800 via [facility], . Packet, transfer form and ambulance form on the chart. Pt and pt's RN notified.
[2020-08-07] MEDS ORDERED: NITROGLYCERIN PREMIX 250 ML IV PRN (15:45)
--- NOTE | 2020-08-07 17:21 | CARD ---
MR#: [id number] Date of Study: 08/07/2020 Ordering Physician: MESSI MARTINEZ, Referring Physician: MESSI MARTINEZ, Tech: RT Sofía(R)() APPROVED REPORT Technologist: Loren Solomon RT(R)() Nurse: Pau Crain RN Procedure(s) performed: FLUORO TIME: 4.0 MIN DOSE: 94 Gycm2 Contrast: 101ml Mod Sedation: 40 MIN LHC, Coronary angiography, Left ventriculogram HISTORY : The patient is a 44 year-old female with a history of . [facility] Clinical Frailty Scale [facility] Clinical Frailty Scale: Mildly Frail Heart Failure Heart Failure: Yes If Yes, Newly Diagnosed: No If Yes, HF Type: Diastolic If Yes, NYHA Class: Class II CASE TECHNIQUE IV conscious sedation was used throughout procedure with appropriate monitoring and was performed in the presence of a registered nurse who was an independent trained observer other than the physician p erforming the procedure. During this case, Fluoroscopy and low osmolar contrast were used for imaging . Specimen(s) Removed: N/A Estimated Blood loss: 15 cc's. PROCEDURE NARRATIVE Clinical information: 44 y.o woman with SCAD last week presents with worsening symptoms. Informed consent: Written informed consent was obtained from the patient after adequate discussion of the risks and murtaza efits of the procedure. Procedure details: ACCESS: The right wrist was prepped and draped in usual sterile fashion. Under 1% lidocaine local anesthesia a 6 Cymraes Terumo sheath was placed in the right radial artery via the Seldinger technique. DIAGNOSTIC ANGIOGRAPHY: Right and left coronary arteries were engaged with a 6 Cymraes TIG catheter and JL 3.5 catheter. Diag nostic angiography in multiple views were obtained. Next, a 6 Cymraes pigtail catheter was placed in the left ventricle and a LVEDP was measured. A pullback was performed after left ventriculography. All catheters were exchanged over J-tip guidewire. FINDINGS: ======= Aorta: 110/80 LVEDP: 10 mmHg Left ventriculogram: Ejection fraction 55% Normal wall motion without any evidence of aortic or mitral insufficiency. Coronary angiography: LM: Large caliber vessel with normal angiographic appearance LAD: Large caliber vessel with mid to distal diffuse spasm, dissection and probable thrombus consiste nt with SCAD. LCX: Moderate caliber non-dominant vessel with mild luminal irregularities OM1: Moderate caliber vessel with mid to distal spasm, dissection and probable thrombus consistent wi th SCAD. RCA: Large caliber dominant vessel with mild luminal irregularities RPDA: Moderate caliber vessel with mild luminal irregularities. CLOSURE: At case completion the right radial sheath was removed and a Terumo radial band was applied with 11 m L of air. Hemostasis was achieved. COMPLICATIONS: No acute complications noted Conclusion 1. Normal left sided filling pressures. 2. Normal LV systolic function. EF 55% 3. SCAD of the LAD and LCx. Recommendations 1. Continue heparin and nitro gtt 2. Patient was previously covid negative but repeat testing positive. 3. Supportive care. 4. Will plan on transfer to [facility] for monitoring given worsening SCAD without clear intervenable lesio ns. Signed by : Messi Martinez, Electronically Approved : 08/07/2020 17:21:20
--- NOTE | 2020-08-07 17:38 | NUR ---
Entry into IV spreadsheet at 0814 for Heparin drip for rate of 17.532 is not correct.
--- NOTE | 2020-08-07 18:50 | NUR ---
Patient transferred to this shift. Report called to accepting TOM Kelly. EMS arrived around 1800 to take patient via stretcher. Patients updated of patients transport.
--- NOTE | 2020-08-07 21:05 | DS ---
DATE OF DISCHARGE: 08/07/2020 ADMITTING DIAGNOSES: Acute myocardial infarction with previous known coronary artery disease. DISCHARGE DIAGNOSES: Acute myocardial infarction (she is being transferred to the [facility] after cardiac catheterization this afternoon). HOSPITAL COURSE: The patient is a pleasant 44-year-old female who had a catheterization on 08/02 after having acute myocardial infarction, it was discovered that she had a dissection of her LAD and circumflex. She was sent home with aspirin, beta blockade and Plavix and was doing well, but last night presented again with chest pain. Her initial troponin was 0. But this morning is up to 19. She was taken to the test lab technician. Along the test lab technician, they note that she had multivessel disease was complex, cardiology called [facility] and the patient has been accepted to [facility] for higher level of care. DISPOSITION: Transferred to the [facility]. ACTIVITY: Bed rest. DIET: N.p.o. MEDICATIONS: We will continue the same medications. TOTAL TIME: [address]: Blake TID: [id number]
== END 2020-08-07 18:00 | disposition short-term general hospital (02) | DRG 280 ==
LOC: ER 22:45 → 2 NORTH 23:55
PROVIDERS: ADMIT Internal Medicine; ATTEND Internal Medicine
PROC: 4A023N7 Measurement of Cardiac Sampling and Pressure, Left Heart, Percutaneous Approach (ICD-10-PCS; principal; 2020-08-07)
PROC: B2111ZZ Fluoroscopy of Multiple Coronary Arteries using Low Osmolar Contrast (ICD-10-PCS; 2020-08-07)
PROC: B2151ZZ Fluoroscopy of Left Heart using Low Osmolar Contrast (ICD-10-PCS; 2020-08-07)
DX: I21.9 Acute myocardial infarction, unspecified (principal); I25.42 Coronary artery dissection; U07.1 COVID-19; Z68.42 Body mass index [BMI] 45.0-49.9, adult; E11.9 Type 2 diabetes mellitus without complications; I10 Essential (primary) hypertension; E78.00 Pure hypercholesterolemia, unspecified; E78.5 Hyperlipidemia, unspecified; I25.10 Atherosclerotic heart disease of native coronary artery without angina pectoris; E88.81 Metabolic syndrome and other insulin resistance; E66.01 Morbid (severe) obesity due to excess calories; I16.0 Hypertensive urgency; Z88.5 Allergy status to narcotic agent; Z83.3 Family history of diabetes mellitus; Z82.49 Family history of ischemic heart disease and other diseases of the circulatory system
CPT/HCPCS: 36415; 71045; 80048; 80053; 80061; 82962; 83735; 83880; 84484; 85025; 85520; 85610; 85730; 87426; 93005; 93458; 96361; 96374; 99152; 99153; C1892; J1644; J2250; J3010; J3490; Q9967; U0003; U0005; 99285-25; G0378